=== PATIENT | male | born 1965 | race African-American/Black ===

== ENCOUNTER 2024-12-05 20:06 | Inpatient (IN) | payer MEDICARE, OTHER, SELFPAY ==
[2024-12-05] VITALS (21 sets, daily range): BP systolic 64–145; BP diastolic 50–87; BMI 28.2
[2024-12-05] MEDS: LEVOPHED 250 IV (16:58)
[2024-12-05 17:11] LABS: Hematocrit 33.0 % (39.0-52.0); Hemoglobin 10.3 g/dL (13.0-18.0); Mean Corp Hgb Conc. 31.2 g/dL (33.0-37.0); Mean Corpuscular Volume 86.4 fL (80.0-94.0); Nucleated Red Blood Cells % 0 % (-); Platelet Count 303 10^3/uL (130-400); Red Cell Dist. Width 15.9 % (11.5-14.5)
--- NOTE | 2024-12-05 17:24 | ED.GENMED ---
History of Present Illness
General
Chief Complaint: Unresponsive
Source: ambulance crew
Time Seen by Provider: 12/05/24 16:53
History of Present Illness
History of Present Illness:
59-year-old male brought to the [facility] by ambulance after being found confused at home. He has had some falls. thought it would be related to his glucose however paramedics noted that his glucose was in the 280s. Patient is a bit lethargic
and not able to answer questions fully but does indicate that he had diarrhea. He has had multiple episodes of diarrhea.
Phy Exam
Physical Exam
Physical Exam:
General: Sleepy but arousable, mildly confused
Vitals: Hypotensive
Head: Atraumatic
Eyes: Pupils equal, EOMI
Throat: Airway intact, no exudates, dry mucosa
Neck: Trachea midline
Lungs: Clear and equal b/l
Heart: Regular rate, no murmurs
Abd: Soft, diffuse mild tenderness, No pulsatile mass
Neuro: Nonfocal
Skin: Cool, dry, no rash
Extremities: pulses equal b/l, no edema
Course
Orders/Labs/Results
Orders:
Orders
12/05/24 Breakfast
Sodium, 2 Gram
At Your Request: Limited Participation
Low Sodium: 2000 ines/ 17 CHO Diabetic
12/05/24 16:51
EKG [Electrocardiogram (*1)] Urgent
Reason for Study: Tachycardia
EKG- Treatment ONCE
12/05/24 16:53
NORepinephrine 4 MG/250 ML [Levophed] 4 mg in 250 ml .ROUTE .STK-MED
12/05/24 17:02
Alcohol Urgent
Basic Metabolic Panel Urgent
Complete Blood Count/With Diff Urgent
Lipase Urgent
0.9% Sodium Chloride 1000 ml [Nss] 2,700 ml IV NOW STA
12/05/24 17:04
CT Abd/pelvis W Iv Cont Urgent
Comment:
Reason For Exam: abd pain, diarrhea, hypotension
CT Head W/o Iv Contrast Urgent
Comment:
Reason For Exam: altered mental status
12/05/24 17:05
CR Chest Portable - 1 View Urgent
Comment:
Reason For Exam: altered mental status
Reason Study Needs to be Portable: Patient Unstable
12/05/24 17:08
NORepinephrine 4 MG/250 ML [Levophed] 4 mg in 250 ml IV NOW
Initial dose in mcg/min, then titrate:: 2
Titrate to keep:: MAP > 65 mmHg
Titrate by mcg/min:: 1-2 mcg/min
Frequency of titrations (minutes):: 5
Maximum dose in ICU in mcg/min:: 30
Maximum dose in IMU in mcg/min:: 8
Maximum dose in IVU in mcg/min:: 4
Begin to taper infusion when:: Remained at goal for 4hrs
Taper by mcg/min:: 1-2 mcg/min
Frequency of taper (minutes) if patient maintains goal:: 30
Taper to off?: Yes
If infusion off & no longer maintaining goal:: Contact Provider
12/05/24 17:16
Piperacillin/Tazo 4.5 Gram [Zosyn] 4.5 gram in 100 ml IV NOW
Vancomycin [Vancocin] 2,000 mg 0.9% Sodium Chloride 500 ml [Nss] 500 ml IV NOW
12/05/24 17:30
Fentanyl, Urine Urgent
Lactic Acid Q4H
Comment: CANCEL 2nd LACTIC ACID IF 1st LACTIC ACID IS LESS THAN 2
Urinalysis Reflex To Culture Urgent
Date Specimen was Collected: 12/05/24
Time Specimen was Collected: 17:07
Urine Drug Abuse Screen Urgent
Date Specimen was Collected: 12/05/24
Time Specimen was Collected: 17:07
Urine Microscopic Reflex Cult Urgent
Blood Culture Q30M
TONYA Source: Blood/Venous
Specimen Description:
Blood Culture Q30M
TONYA Source: Blood/Venous
Specimen Description:
STOOL [C difficile Antigen & Toxins] Urgent
TONYA Source: Feces/Stool
Specimen Description:
Date Specimen was Collected: 12/05/24
Time Specimen was Collected: 17:24
Stool Culture Urgent
TONYA Source: Feces/Stool
Specimen Description:
Date Specimen was Collected: 12/05/24
Time Specimen was Collected: 17:24
12/05/24 17:42
Comprehensive Metabolic Panel Urgent
12/05/24 17:56
Interrogate Pacemaker- Treatment ONCE
12/05/24 17:59
Vancomycin [Vancocin] 2,000 mg 0.9% Sodium Chloride 500 ml [Nss] 500 ml IV NOW
12/05/24 19:48
Admit/Transfer Patient As Directed
Co-Sign Provider:
Level of Care: Inpatient admission
Assign to:: IMU- Intermediate Care
Physician / Group: [facility]
Diagnosis: Sepsis
Reason for Hospitalization: IV abx
Expected length of stay greater than two midnights?: Yes
ELOS- Estimated Length of Stay in days: 3
I certify the patient meets the requirements for IP care: Yes
PRN Pain Medication Management As Directed
May give lesser potent ordered pain med per pt: Yes
preference::
Protocol:: Medication orders for pain may be administered in a
manner that supports deferring to patient preference
when the pt is:
- Requesting an ordered lesser potent pain medication.
Least to most potent pain medications are defined
as: acetaminophen < NSAID < tramadol < opioids
(morphine, oxycodone, hydromorphone).
- Requesting a lesser dose of the same medication IF
ORDERED.
- Requesting a less intrusive route of administration
if both routes are prescribed by the provider (PO <
IV).
12/05/24 19:50
Code Status As Directed
Resuscitation Status: Full Code
12/05/24 19:56
Morphine Sulfate 2 mg IV NOW STA
Potassium Chloride Powder [Klor-Con] 40 meq PO NOW STA
12/05/24 21:12
0.9% Sodium Chloride 1000 ml [Nss] 1,000 ml IV 100 mls/hr
Acetaminophen [Tylenol] 650 mg PO Q4HPRN PRN
Dextrose 50%-Water [Dextrose 50% Syringe] 12.5 grams IV [id number] PRN
Glucagon [GlucaGen] 1 mg IM PRN PRN
Morphine Sulfate 2 mg IV Q4HPRN PRN
12/05/24 21:12
Activity As Directed
Activity Level: Out of Bed-Early Mobility
With Assistance
Bedside Glucose Monitoring As Directed
Frequency: AC&HS
Additional Instructions:: Change to q6h if pt on TPN, tube feeding or not eating
I&O [Intake/ Output] As Directed
Frequency: q12h
Obtain Records As Directed
Dates of Information to be Released: November 2024
Type of Information Requested: Discharge Summary
Entire Record
Obtain Records from: [facility]
Obtain Records As Directed
Dates of Information to be Released: November 2024
Type of Information Requested: H&P
Discharge Summary
Obtain Records from: [facility]
Obtain Records As Directed
Dates of Information to be Released: Most Recent
Type of Information Requested: ECG/Cardiology Results
Last Office Visit H&P
If Other, list type of info requested: Pacemaker/Defibrillator Model Information
Obtain Records from: [facility] - Dr. Hafsa Rome
Vital Signs As Directed
Frequency: Per unit guidelines
Weight As Directed
Frequency: Daily
Oxygen Therapy [O2 Therapy] [RESP] Routine
Titrate/Wean O2 to maintain O2 sat greater than (%): 92
Ot Eval And Treat Routine
Pt Eval And Treat Routine
Activity Level: Out of Bed-Early Mobility
DX Deep Vein Thrombosis Video Routine
12/05/24 21:20
Lactic Acid Q4H
Comment: CANCEL 2nd LACTIC ACID IF 1st LACTIC ACID IS LESS THAN 2
12/05/24 22:00
Gabapentin [Neurontin] 400 mg PO QID
12/06/24 00:00
Piperacillin/Tazo 3.375 Gram [Zosyn] 3.375 gram in 50 ml IV Q6H
Vancomycin HCl [Firvanq] 125 mg PO Q6
12/06/24 04:30
Basic Metabolic Panel IN AM
Complete Blood Count/No Diff IN AM
Glycohemoglobin (HgbA1c) IN AM
Lipase IN AM
Magnesium IN AM
12/06/24 07:30
Insulin Aspart Corrective Mod [Novolog Flexpen-Moderate Resistance] See Protocol SC AC
12/06/24 08:00
Atorvastatin [Lipitor] 40 mg PO DAILY
Dapagliflozin [Farxiga] 10 mg PO DAILY
Tamsulosin [Flomax] 0.8 mg PO DAILY
12/06/24 09:00
Cholestyramine [Questran] 4 gram PO DAILY@0900
12/06/24 18:00
Enoxaparin Sodium [Lovenox] 40 mg SC QPM
Abnormal Lab Results
12/05/24 12/05/24 12/05/24
17:02 17:30 17:42
WBC 23.3 H 10^3/uL
(4.8-10.8)
RBC 3.82 L 10^6/uL
(4.70-6.10)
Hgb 10.3 L g/dL
(13.0-18.0)
Hct 33.0 L %
(39.0-52.0)
MCHC 31.2 L g/dL
(33.0-37.0)
RDW 15.9 H %
(11.5-14.5)
Abs Immat Gran (auto) 0.1 H 10^3/uL
(0-0.05)
Absolute Neuts (auto) 19.3 H 10^3/uL
(1.4-6.5)
Absolute Monos (auto) 1.7 H 10^3/uL
(0.1-0.6)
Neutrophils % 82.8 H %
(42.2-75.2)
Lymphocytes % 8.2 L %
(20.5-51.1)
Potassium 3.3 L mmol/L
(3.5-5.1)
Chloride 113 H mmol/L
(98-107)
Carbon Dioxide 18 L mmol/L
(22-30)
Glucose 308 H mg/dl 254 H mg/dl
(70-99) (70-99)
Lactic Acid 3.7 H mmol/L
(0.7-2.0)
Calcium 7.3 L D mg/dl
(8.4-10.2)
Total Protein 5.5 L g/dl
(6.3-8.2)
Albumin 3.1 L g/dl
(3.5-5.0)
Lipase 683 H U/L
(23-300)
Urine RBC 3-6 A /HPF
(0-2)
Urine Glucose 4+ A
(Negative)
Urine Albumin (Reflex) 2+ A
(Neg - Trace)
Urine Cocaine Screen Positive H
(Negative)
U Marijuana (THC) Screen Positive H
(Negative)
12/05/24 17:02
12/05/24 17:42
Vital Signs
Initial and Last Documented VS:
Initial Vital Signs
Pulse Resp BP Pulse Ox
89 13 64/50 85
12/05/24 16:51 12/05/24 16:51 12/05/24 16:51 12/05/24 16:51
Last Documented Vital Signs
Temp Pulse Resp BP Pulse Ox
98.1 F 87 11 131/80 100
12/06/24 23:24 12/06/24 22:30 12/06/24 22:30 12/06/24 22:00 12/06/24 22:30
MDM/Problems Addressed
Differential Diagnosis Includes:
Intra-abdominal infection, C. difficile, urinary tract infection
MDM/Problems Addressed:
Patient presents with altered mental status, hypotension, chills. His exam was nonfocal. Patient received IV fluid resuscitation with a 30 cc per program fluid bolus. Levophed was started for profound hypotension. With increased blood pressure
the patient's mental status improved greatly. He became more conversant. He was able to tell me that was admitted to [facility] a couple weeks ago for something of a rectal abscess. Surgery was discharged. He was having severe
pain postop and felt like he was discharged too early so he went to [facility] where he was admitted for an additional couple days. After further antibiotics he felt better. He states that he developed diarrhea just today. It was
voluminous.
*Radiology
Radiology exam reviewed: preliminary read by ED provider (No acute findings on chest x-ray)
*Pulse Oximetry
SaO2: 100
Oxygen Mode of Delivery: Non-rebreather mask
Patient hypoxic: no
*EKG
Heart Rate: 79
Rate: normal
Rhythm: sinus
Otho: normal axis
Interval: normal interval
QRS Pattern: normal QRS
Ischemia: non-specific ST changes
*Tail Ripper Interpretation
Rate: normal
Interpretation: normal
Heart Rate: 79
Rhythm: sinus
*Critical Care Note
Total Time (30-74mins, 75-104mins- exclusive of procedures): 40 min
comment:
Critical care statement: A total of 40 minutes of critical care time was provided for this patient. This includes management of unstable vital signs, evaluation of the patient at bedside, reviewing the patient's pertinent medical records, discussion
with consultants, review of old EKGs and review of pertinent medical records. This time with separate from time utilized to perform the aforementioned documented procedures
ED Attending Note
-
Portions of this chart may have been created with voice recognition software.� Occasional wrong word or��sound alike� substitutions may have occurred due to the inherent limitations of voice recognition software.
Discharge Plan
Departure
Patient Disposition: Admit
Date of Disposition: 12/05/24
Time of Disposition: 18:33
Presentation/result/management discussed w/ accepting MD/DO: Hospitalist
Condition: Fair
Discharge Problem:
Acute hypotension, Diarrhea
Interventions
Interventions:
*Risk Screen - Suicide Last Done: 12/05/24 17:50
*General Assessment Last Done: 12/05/24 17:50
*Neglect/Abuse Screening Last Done: 12/05/24 17:50
*ED- Fall Risk Assessment Last Done: 12/05/24 16:51
*ED COVID-19 Vaccine History Last Done: 12/05/24 17:50
*Nursing Disposition Last Done: 12/05/24 22:05
ED- Neurological Assessment Last Done: 12/05/24 17:46
Discharge Date and Time
Discharge Date/Time: 12/05/24 22:06
[2024-12-05] MEDS: NSS 2700 ML IV (17:25)
[2024-12-05 17:39] LABS: Blood Urea Nitrogen 18 mg/dl (9-20); Calcium 9.8 mg/dl (8.4-10.2); Carbon Dioxide 24 mmol/L (22-30); Chloride 102 mmol/L (98-107); Estimated Creatinine Clearance 60 ml/min; Glucose 308 mg/dl (70-99); Lipase 683 U/L (23-300); Sodium 138 mmol/L (135-145); eGFR > 60.00
[2024-12-05] MEDS: ZOSYN 100 IV (17:45)
[2024-12-05 17:49] LABS: Urine Character Clear (Clear)
[2024-12-05 18:05] LABS: Urine Squamous Cell 0-2 /LPF (Few)
[2024-12-05 18:06] LABS: Urine White Cell 0-2 /HPF (0-5)
[2024-12-05 18:33] LABS: ALT (SGPT) 13 U/L (0-50); AST (SGOT) 22 U/L (17-59); Albumin 3.1 g/dl (3.5-5.0); Alkaline Phosphatase 64 U/L (38-126); Blood Urea Nitrogen 14 mg/dl (9-20); Calcium 7.3 mg/dl (8.4-10.2); Carbon Dioxide 18 mmol/L (22-30); Chloride 113 mmol/L (98-107); Estimated Creatinine Clearance 87 ml/min; Glucose 254 mg/dl (70-99); Potassium 3.3 mmol/L (3.5-5.1); Sodium 139 mmol/L (135-145); Total Protein 5.5 g/dl (6.3-8.2); eGFR > 60.00
[2024-12-05] MEDS: VANCOCIN 540 MG IV (19:19)
--- NOTE | 2024-12-05 19:28 | HPS.HSE ---
Family Physician
-
Family Physician: Nash Tolentino
Chief Complaint
-
Confusion
History of Present Illness
Patient is a 59 y/o male past medical history of hypertension, hyperlipidemia and diabetes mellitus who presents with confusion. Additional history provided by patient's spouse at the bedside. Patient was admitted to [facility] earlier this
month with a perirectal abscess. He was discharged on November 19 on oral cefdinir and metronidazole. Unfortunately patient worsened upon returning home and he went to [facility]. He was admitted for another 5 days and then discharged
with a PICC line to complete a coarse of IV antibiotics (possibly ertapenem). Patient is unable to tells me what kind of infection he had that required IV antibiotics. Patient reports over the past few days he has been having one episode of
diarrhea per day, but today the diarrhea was much worse. He describes it as voluminous and he could not get off the toilet the whole morning. His found him very confusion and called 911. Upon arrival to the emergency department patient was
very hypotensive for which he received IVFs and was started on Levophed. Patient's mentation is now greatly improved and he is no longer on Levophed.
Medical History
Past Medical History
Past Medical History: Reports Other
Additional Past Medical History:
Diabetes Mellitus, Type II
Essential Hypertension
Hyperlipidemia
BPH
Past Surgical History: Reports Other
Additional Past Surgical History:
ICD / Pacemaker
Social History
Tobacco: Smoker (1/2 PPD)
Alcohol: Binge drinker (Patient reports drinking a case of beer in a night, usually twice a week but has consumed no alcohol for the past 3 weeks)
Drug: Marijuana (Current) and Cocaine (Patient reports last usage as 'years ago')
Family History
Family History: Not pertinent
Allergies / Home Medications
Allergies reflects when Allergies were last updated in [employer].
Home Medications with original date entered in [employer]
Allergy/Medication List:
Allergies
Allergy/AdvReac Type Severity Reaction Status Date / Time
No Known Allergies Allergy Verified 12/05/24 16:57
Home Medications
atorvastatin 40 mg tablet 40 mg PO DAILY 12/05/24
azelastine 137 mcg (0.1 %) nasal spray 2 spray intranasal BID 12/05/24
dapagliflozin propanediol 10 mg tablet (Farxiga) 10 mg PO DAILY 12/05/24
dutasteride 0.5 mg-tamsulosin ER 0.4 mg capsule ext.release 24hr mphas 2 cap PO DAILY 12/05/24
furosemide 40 mg tablet 40 mg PO DAILY 12/05/24
gabapentin 400 mg capsule 400 mg PO QID 12/05/24
losartan 100 mg tablet 100 mg PO DAILY 12/05/24
metformin 1,000 mg tablet 1,000 mg PO BID 12/05/24
metoprolol tartrate 25 mg tablet 25 mg PO BID 12/05/24
Review of Systems
-
A 12 point ROS was completed and negative except as noted: Yes
Constitutional: Reports Chills
Respiratory: Denies Cough or Trouble Breathing
Cardiac: Denies Chest Pain or Palpitations
Abdomen/GI: Reports Diarrhea; Denies Abdominal Pain, Nausea or Vomiting
: Denies Dysuria or Frequency
Physical Exam
Vital Signs
Vital Signs
Temp Pulse Resp BP Pulse Ox
97.5 F 93 20 116/69 98
12/05/24 17:22 12/05/24 17:45 12/05/24 17:45 12/05/24 17:45 12/05/24 19:24
Physical Exam
General: Comfortable and Conversant
HEENT: Anicteric and Moist mucous membranes
Respiratory: Clear and Non Labored Respirations
Cardiac: S1/S2, Regular Rhythm and Tachycardia (Slightly)
GI: Soft, Non Tender and Non Distended
Rectal: Deferred by Provider
Musculoskeletal: No Clubbing, No Cyanosis and No Edema
Skin: Warm and Dry
Neuro: Awake, Alert, Oriented and No Motor Deficits
Psych: Calm
Laboratory Results
-
12/05/24 17:02
12/05/24 17:42
Laboratory Results
Lactic Acid 3.7 mmol/L (0.7-2.0) H 12/05/24 17:30
Total Bilirubin 0.4 mg/dl (0.2-1.3) 12/05/24 17:42
AST 22 U/L (17-59) 12/05/24 17:42
ALT 13 U/L (0-50) 12/05/24 17:42
Alkaline Phosphatase 64 U/L (38-126) 12/05/24 17:42
Lipase 683 U/L (23-300) H 12/05/24 17:02
Abd/Pelvis CT:
The appendix appears normal. No evidence for bowel obstruction or free intraperitoneal air. No gross evidence for significant bowel wall thickening or abnormal enhancement.
Significant endplate irregularity at L5-S1 with depression of the adjacent endplates. Main differential considerations of discitis versus severe changes of degenerative disc disease. There is air within the disc space, a finding which is reported to
favor changes of degenerative disc disease without infection. As warranted, further evaluation could be considered with MRI of the lumbar spine without and with contrast.
Data Reviewed
-
CT Scan: Report Reviewed by me
Lab Data: Labs Reviewed by me
Old Records: Requested
Impression/Plan
-
Severe Sepsis, unclear source of infection
-Possible sources include bacteremia following recent PICC removal, C Diff following prolonged coarse of antibiotics, and possible discitis as noted on CT scan
-Consult Infectious Disease
-Await urine and blood cultures
-Await C Diff testing and stool cultures
-Check Lumbar Spine MRI
-Continue IV Vancomycin and Zosyn
-Start oral vancomycin pending C Diff testing
-Trend lactic acid level
-Requested records from [facility] and patient's [employer]
Hypokalemia, likely related to GI losses
- Replace potassium and recheck labs in AM
Hypocalcemia
-Initial calcium level within normal range
-Repeat corrected calcium slightly low at 8.0
-Recheck calcium in AM
Diabetes Mellitus, Type II
-Continue Farxiga
-Hold metformin
-Monitor sugars and continue coverage insulin
Essential Hypertension
-Hold all blood pressure medications as patient as profoundly hypotensive upon arrival
Hyperlipidemia
-Continue atorvastatin
BPH with LUTS
-Continue Flomax
DVT Proph: Lovenox
Code Status: Full Code
[2024-12-05] MEDS: MORPHINE SULFATE 2 MG IV (20:22)
[2024-12-05] MEDS: KLOR-CON 40 MEQ PO (20:30)
[2024-12-05 22:25] LABS: Glucose - Point of Care 275 mg/dl (70-99)
--- NOTE | 2024-12-05 22:31 | PTCARENOTE ---
Patient arrived into room 3343 from ER. Patient alert, making jokes. Moved over from stretcher to bed. NSR / ST on telemetry. BP WNL. CHG done. Pt eating boxed turkey meal, no s/s of aspiration. 1L NC, Sp02 97-99%. Admission questions started.
C.Diff sample sent in ER; education started on isolation precautions and plan of care. Pt states he smokes marijuana for his chronic back pain; [employer] made aware. Oriented to room and use of call saldana. 2 RN skin check done with what pt allows, pt
modest. Bed alarm set for safety. Call saldana within reach.
--- NOTE | 2024-12-05 22:39 | W.PN.UPDATE ---
Update Note
Progress Note Update
Patient seen independently
Please see HOME HEALTH NURSE LICENSED PRACTICAL note for full details
59 y/o man presents with confusion. He was hospitalized earlier this month with a perirectal abscess. He was discharged on November 19 on oral cefdinir and metronidazole. He worsened upon returning home and then went to [facility]. He
was there for another 5 days and then discharged with a PICC line. He does not know what kind of infection he had that required IV antibiotics. Over the past few days he has been having one episode of diarrhea per day, but then today the diarrhea
was more frequent and worse. found him confused and called 911. Upon arrival to ED patient was hypotensive and received IVFs and was started on Levophed. Patient's mentation is now improved and he is no longer on Levophed.
Past Medical History
Diabetes Mellitus, Type II
Essential Hypertension
Hyperlipidemia
BPH
ICD / Pacemaker
Physical Exam
General: Comfortable
Respiratory: Clear
Cardiac: S1/S2
GI: Soft, Non Tender
Skin: Warm
Neuro: Awake, Alert
Psych: Calm
Abd/Pelvis CT:
The appendix appears normal. No evidence for bowel obstruction or free intraperitoneal air.
No gross evidence for significant bowel wall thickening or abnormal enhancement.
Significant endplate irregularity at L5-S1 with depression of the adjacent endplates.
Main differential considerations of discitis versus severe changes of degenerative disc disease.
There is air within the disc space, a finding which is reported to favor changes of degenerative disc disease without infection.
As warranted, further evaluation could be considered with MRI of the lumbar spine without and with contrast.
Impression/Plan
1. Severe Sepsis, unclear source of infection
Possible sources include:
bacteremia following recent PICC removal
C Diff following prolonged coarse of antibiotics
possible discitis as noted on CT scan above
Consult Infectious Disease
urine and blood cultures
C Diff testing and stool cultures
Lumbar Spine MRI
IV Vancomycin and Zosyn
oral vancomycin (pending C Diff testing)
Trend lactic acid level
Please see PA note for full details on:
Hypokalemia, likely related to GI losses
Hypocalcemia
Diabetes Mellitus, Type II
Essential Hypertension
Hyperlipidemia
BPH with LUTS
[2024-12-05] MEDS: NEURONTIN 400 MG PO (22:45)
[2024-12-05] MEDS: NSS 1000 IV (22:49)
--- NOTE | 2024-12-05 23:22 | PHA.VAN.IN ---
Assessment
- Assessment
Renal Function: Appears similar to baseline
Maximum Temperature: 98.3
Minimum Temperature: 97.5
Concomitant Antimicrobials: Zosyn 3.375 mg IV q6h
AUC Dosing Plan
- Dosing Variables
Dosing Weight (kg): 89.1 kg
Dosing CrCl (ml/min): 90 ml/min
Vd coefficient (L/kg): 0.7
- Empiric Dosing
Initial / Loading Dose: Vancomycin 2000 mg x 1 dose
Maintenance Regimen: Vancomycin 750 mg IV q8h
Estimated AUC (mcg*h/mL): 474
Estimated Peak (mcg*h/mL): 25.6
Estimated Trough (mcg/ml): 14.7
Estimated Half Life (H): 8.8
- Monitoring
Peak level is ordered to be drawn (date/time): 12/07 at 1:00 AM
Trough level is ordered to be drawn (date/time): 12/07 at 5:30 AM
Levels to be Drawn after Dose #: 4
Pharmacokinetics Vancomycin I
- -
Patient Age: 59
Vancomycin Day #: 1
Indication: Other (Sepsis)
Requesting Provider: Dr. Anderson
Pertinent Antimicrobial Allergies:
NKDA
Height / Weight:
Height 5 ft 10 in
Actual Weight 89.1 kg
IBW in k kg
Adjusted BW in k.4 kg
Pertinent Past Medical History: DM, BMI: 28.2
- Vital Signs / Lab Results
Temp Pulse Resp BP Pulse Ox
98.3 F 91 16 130/75 98
12/05/24 22:08 12/05/24 22:15 12/05/24 22:15 12/05/24 22:07 12/05/24 22:15
Lab Results - Hematology
12/05/24
17:02
WBC 23.3 H
Lab Results - Chemistry
12/05/24 12/05/24
17:02 17:42
BUN 18 14
Creatinine 1.3 0.9
Estimated Creat Clear 60 87
Albumin Cancelled 3.1 L
12/05/24 12/05/24
17:30 21:20
Lactic Acid 3.7 H 1.2
Lab Results - Urine
12/05/24
17:30
Urine Nitrite (Reflex) Negative
Leukocyte Esterase Rfl Negative
Urine WBC (Reflex) 0-2
Ur Squamous Epith Cells 0-2
[2024-12-05] MEDS: FIRVANQ 125 MG PO (23:58)
[2024-12-05] MEDS: ZOSYN 50 IV (23:58)
[2024-12-06] VITALS (14 sets, daily range): BP systolic 112–181; BP diastolic 66–100; PULSE 99–121; O2SAT 91–96; BMI 27.9
[2024-12-06 04:47] LABS: Hematocrit 26.7 % (39.0-52.0); Hemoglobin 8.9 g/dL (13.0-18.0); Mean Corp Hgb Conc. 33.3 g/dL (33.0-37.0); Mean Corpuscular Volume 83.2 fL (80.0-94.0); Platelet Count 203 10^3/uL (130-400); Red Cell Dist. Width 15.0 % (11.5-14.5)
[2024-12-06 05:09] LABS: Albumin 3.5 g/dl (3.5-5.0); Blood Urea Nitrogen 15 mg/dl (9-20); Calcium 8.7 mg/dl (8.4-10.2); Carbon Dioxide 20 mmol/L (22-30); Chloride 110 mmol/L (98-107); Estimated Creatinine Clearance 101 ml/min; Glucose 268 mg/dl (70-99); Lipase 198 U/L (23-300); Magnesium 1.8 mg/dl (1.6-2.3); Potassium 4.2 mmol/L (3.5-5.1); Sodium 137 mmol/L (135-145); eGFR > 60.00
[2024-12-06] MEDS: VANCOCIN 150 IV (05:15)
[2024-12-06] MEDS: OCEAN, SALINE MIST 1 SPRAYS NASAL (05:15)
[2024-12-06] MEDS: ZOSYN 50 IV ×3 (06:27→17:01)
[2024-12-06] MEDS: FIRVANQ 125 MG PO (06:27)
[2024-12-06 07:48] LABS: Glucose - Point of Care 234 mg/dl (70-99)
[2024-12-06] MEDS: FLOMAX 0.8 MG PO (08:13)
[2024-12-06] MEDS: LIPITOR 40 MG PO (08:13)
[2024-12-06] MEDS: NOVOLOG FLEXPEN-MODERATE RESISTANCE 3 UNITS SC (08:13)
[2024-12-06] MEDS: FARXIGA 10 MG PO (08:13)
[2024-12-06] MEDS: NEURONTIN 400 MG PO ×4 (08:13→22:05)
[2024-12-06 09:03] LABS: Glycohemoglobin (HgbA1c) 8.8 % (4.0-5.6)
[2024-12-06] MEDS: QUESTRAN 4 GRAM PO (09:50)
--- NOTE | 2024-12-06 11:25 | CM ---
Addendum entered by Milana Velasquez 12/06/24 14:18:
Pt has Medicare Part A primary, [place] 1st secondary
No Part B
Original Note:
CM met with pt bedside
Pt and spouse reside in a 3 story townhouse with 0STE to enter 'alyson stevens', 16 steps to main living level and 16 steps up to sleeping/bathing level
Pt is independent with his ADLs, no DMEs, drives+
P is currently not working and in process of applying for disability
Pt recently admitted to [facility] [place] and [facility]
Was discharged with picc/IV abx through [facility], no VN
PCP- Nash Tolentino
Rx- [facility]
Call with spouse to introduce self and explain role
She confirmed info provided by pt
Spouse wants to avoid home abx again
PT/OT pending
CM to follow for dc planning
Discharge Disposition- home, follow for VN/abx needs
--- NOTE | 2024-12-06 11:39 | W.PN.HOSP.TC ---
Today's Communication/Plan
-
Follow-up cultures
MRI of the lumbar spine
Empiric antibiotics
Assessment / Plan
Assessment / Plan
Impression:
Concern for evolving sepsis/SIRS.
Acute mental status change secondary to toxic metabolic encephalopathy secondary to above.
Acute kidney injury
Normal anion gap metabolic acidosis
Hypokalemia
Hypocalcemia
Substance use disorder (urine drug screen positive for marijuana and cocaine)
Conditions prior to admission
Recent hospitalization outside hospital with projectile abscess status post I&D completed course of IV antibiotics via PICC line PICC line removed on 12/03
Diabetes type 2.
Essential hypertension.
Dyslipidemia
Status post pacemaker about 6 years ago.
BPH with LUTS
Plan:
Abd/Pelvis CT:
The appendix appears normal. No evidence for bowel obstruction or free intraperitoneal air. No gross evidence for significant bowel wall thickening or abnormal enhancement.
Significant endplate irregularity at L5-S1 with depression of the adjacent endplates. Main differential considerations of discitis versus severe changes of degenerative disc disease. There is air within the disc space, a finding which is reported to
favor changes of degenerative disc disease without infection. As warranted, further evaluation could be considered with MRI of the lumbar spine without and with contrast.
Presentation with fever, elevated white count, hypotension.
Differential diagnosis: Bacteremia (given recent PICC line), C. difficile ruled out, L5-S1 osteomyelitis given CT scan imaging.
Hypotension improved with IV fluids.
Abdominal examination benign.
CT as above with no evidence of collection.
Stool for C. difficile negative pending rest of cultures
Blood cultures pending
Urinalysis unremarkable.
Continue broad-spectrum antibiotics: Currently on vancomycin and Zosyn pending cultures
He does complain of a chronic lower back pain since accident. MRI pending.
ID consult
Acute kidney injury.
Normal anion gap metabolic acidosis
Improved with IV fluid bolus.
Diabetes.
Hemoglobin A1c 8.8.
Continue Farxiga.
Hold metformin.
Basal bolus protocol following serial Accu-Cheks
Cardiovascular.
Essential hypertension.
Status post pacemaker
Dyslipidemia.
Denies heart failure.
Medical records from primary cardiology pending.
Volume status compensated per
Hold furosemide acutely.
Continue metoprolol monitor for recurrent hypertension
Continue statin
BPH with LUTS
Continue Flomax
Monitor for retention
Anticipated Discharge: 24 - 48 hours
Subjective/Interval History
-
Date of Service: December 06, 2024
Objective Data
-
Labs:
Laboratory Results
12/06/24
04:30
WBC 10.0
Hgb 8.9 L
Hct 26.7 L
Plt Count 203 D
Sodium 137
Potassium 4.2 D
Chloride 110 H
Carbon Dioxide 20 L
BUN 15
Creatinine 0.8
Glucose 268 H
Calcium 8.7
Vital Signs:
Vital Signs
Temp Pulse Resp BP Pulse Ox
98.0 F 85 15 156/81 96
12/06/24 07:27 12/06/24 10:00 12/06/24 10:00 12/06/24 10:00 12/06/24 10:00
I&O
12/05/24 12/06/24 12/07/24
06:59 06:59 06:59
Intake Total 1450 / 1450 530 / 530
Output Total 1775 / 1775 1100 / 1100
Balance -325 / -325 -570 / -570
Physical Exam
-
General: Well Developed and No Apparent Distress
HEENT: Normocephalic, Atraumatic and Moist Mucous Membranes
Respiratory: Clear to Auscultation
Cardiac: Regular Rhythm and S1/S2; Negative Murmur, Rub or Gallop
GI: Soft, Nontender, Nondistended and Normal Bowel Sounds; Negative Organomegaly
Rectal: Deferred by Provider
Musculoskeletal: No Clubbing, No Cyanosis and No Edema
Skin: Negative Rash
Neuro: Nonfocal/Grossly Intact
[2024-12-06] MEDS: NSS IV (11:41)
[2024-12-06 11:53] LABS: Glucose - Point of Care 293 mg/dl (70-99)
--- NOTE | 2024-12-06 12:34 | PHA.VAN.FU ---
Vancomycin Assessment / Plan
- Assessment
Renal Function: SCR Decreasing
WBC's are: WNL
In the past 24 hrs, patient has been: Afebrile
Concomitant Antimicrobials: piperacillin/tazobactam
- Dosing Plan
Adjust Regimen to: Vanc 1250mg Q12H starting at 1800
- Monitoring Plan
No level(s) ordered at this time: consider levels in next few days
- Follow Up
Pharmacy will continue to follow.
Vancomycin Follow UP
- -
Patient Age: 59
Vancomycin Day #: 2
Indication: Other
Requesting Provider: Jennie Anderson
Pertinent Antimicrobial Allergies:
NKDA
Height / Weight:
Height 5 ft 10 in
Actual Weight 88.1 kg
Pertinent Past Medical History: DM 2
- Vital Signs / Lab Results
Temp Pulse Resp BP Pulse Ox
98.0 F 85 15 156/81 96
12/06/24 07:27 12/06/24 10:00 12/06/24 10:00 12/06/24 10:00 12/06/24 10:00
Lab Results - Hematology
12/05/24 12/06/24
17:02 04:30
WBC 23.3 H 10.0
Lab Results - Chemistry
12/05/24 12/05/24 12/06/24
17:02 17:42 04:30
BUN 18 14 15
Creatinine 1.3 0.9 0.8
Estimated Creat Clear 60 87 101
Albumin Cancelled 3.1 L 3.5
12/05/24 12/05/24 12/06/24
17:30 21:20 00:15
Lactic Acid 3.7 H 1.2 Cancelled
Lab Results - Urine
12/05/24
17:30
Urine Nitrite (Reflex) Negative
Leukocyte Esterase Rfl Negative
Ur Squamous Epith Cells 0-2
Microbiology Results
12/05/24 17:30 C. difficile GDH Antigen & Toxins - Final
Feces/Stool Negative for toxigenic C.difficile
[2024-12-06] MEDS: NOVOLOG FLEXPEN-MODERATE RESISTANCE 5 UNITS SC ×2 (13:24→18:00)
[2024-12-06] MEDS: CATAPRES 0.1 MG PO (14:59)
--- NOTE | 2024-12-06 15:03 | PTCARENOTE ---
Dr. Patel made aware that patient's BP is 181/82. Catapres ordered and administered to patient. Care ongoing.
--- NOTE | 2024-12-06 15:56 | PTCARENOTE ---
Patient AOx3. Forgetful at times. Bed alarm in place and audible. 2L NC when sleeping due to SpO2 less than 88%. NSR-Sinus tach on monitor. BP elevated. MD aware. Utilizes the urinal. Loose stools. Tolerating oral diet. Call saldana within reach, bed
in lowest position, and bed of wheels locked.
--- NOTE | 2024-12-06 16:44 | CON.ID ---
Consultation
-
Date/Time Consultation Requested: 12/06/24
Date/Time Consultation Performed: 12/06/24
Requesting Provider: Dr Patel
Performing Provider: Dr Bertha Turcios
Reason for Consultation: altered mental status with concern for infectious etiology
Chief Complaint / Past History
Chief Complaint
Brought to ED with acute altered mental status change with hypotension noted in ED
History of Present Illness
The patient describes being in a home and getting up to urinate when he felt a bit weak and sat on the commode to urinate and had significant profound prolonged watery diarrhea that made him so weak that he fell off the commode when he finished
defecation. He denies bloody bowel movement and states that he lost consciousness and was brought to the ED where he was found to be hypotensive, unresponsive, altered with leukocytosis.
In the ED the patient was given aggressive IVF hydration with improved status and improved blood pressure. Infectious disease workup was initiated and stool as well as blood cultures were obtained
Upon evaluation in the ED the patient was found to have a leukocytosis WBC of 23.3 with 82% PMN and a lactic acid of 1.2
Imaging was done and showed concerning findings including chest defibrillator in the setting of clear lungs a history of recent anal abscess without current findings, left adrenal mass consistent with an adenoma and findings in the lumbosacral spine
showing L5/S1 endplate abnormalities. Per subsequent history it seems the patient had a recent PICC line insertion and was given ertapenem at home for an unknown infection.
In the ED the patient was placed on broad-spectrum antibiotic with vancomycin/Zosyn in the setting of hypotension and leukocytosis with left shift despite being afebrile. The patient was continued on vancomycin and Zosyn pending results of blood
cultures and follow-up studies.
Past History
Past Medical History: HTN, Hypercholesterolemia (BPH, hyperlipidemia, ICD pacemaker, binge drinker), IDDM and Other
Additional Past Medical History:
BPH , ICD pacemaker
Past Surgical History: Cardiac (ICD insertion/pacemaker)
Allergy History:
No Known Allergies Allergy (Verified 12/05/24 16:57)
Medications Reviewed: Yes
Social History
Tobacco: Smoker
Alcohol: Binge Drinker
Drug: Marijuana and Cocaine
Personal:
Living: With Family
Employment: Other (unknown)
Family History
Family History: Not Pertinent
Review of Systems
Review of Systems
Gasteroenterology: Diarrhea
Neurological: Fainting
Psychological: Substance Abuse
All systems: All other systems were reviewed and were negative
Vital Signs
Temp Pulse Resp BP Pulse Ox
98.5 F 75 21 156/69 94
12/06/24 15:40 12/06/24 16:15 12/06/24 16:15 12/06/24 16:00 12/06/24 16:15
Physical Exam
Physical Exam
Constitutional: No Acute Distress, Well Developed, Comfortable and Chronically Ill
Head: Normocephalic
Eyes: Pupils Equal, Pupils Round, No Conjunctival Hemorrhage and Sclera Anicteric
Pharynx: Benign
Oral: No Thrush and No Ulcers
Cardiovascular: Regular Rate
Pulmonary: Clear
Gastrointestinal: Soft, Non Tender and Non Distended
Genito-Urinary: Other (no flank tenderness)
Skin: Warm and Dry
Wound: None
Neurological: Awake, Alert, Oriented and AO x 3
Psychological: Calm
Lab / Diagnostic Study Results
12/06/24 04:30
12/06/24 04:30
Abs Immat Gran (auto) 0.1 10^3/uL (0-0.05) H 12/05/24 17:02
Absolute Neuts (auto) 19.3 10^3/uL (1.4-6.5) H 12/05/24 17:02
Absolute Lymphs (auto) 1.9 10^3/uL (1.2-3.4) 12/05/24 17:02
Absolute Monos (auto) 1.7 10^3/uL (0.1-0.6) H 12/05/24 17:02
Absolute Basos (auto) 0.1 10^3/uL (0-0.2) 12/05/24 17:02
Immature Gran % 0.5 % (0-0.5) 12/05/24 17:02
Neutrophils % 82.8 % (42.2-75.2) H 12/05/24 17:02
Lymphocytes % 8.2 % (20.5-51.1) L 12/05/24 17:02
Monocytes % 7.3 % (1.7-9.3) 12/05/24 17:02
Eosinophils % 0.9 % (0-6) 12/05/24 17:02
Basophils % 0.3 % (0-2) 12/05/24 17:02
Lactic Acid Cancelled 12/06/24 00:15
Ur Squamous Epith Cells 0-2 /LPF (Few) 12/05/24 17:30
Microbiology Results
Micro:
12/05/24 17:30 C. difficile GDH Antigen & Toxins - Final
Feces/Stool Negative for toxigenic C.difficile
12/05/24 17:30 Blood Culture - Pending
Blood/Venous
12/05/24 17:30 Blood Culture - Pending
Blood/Venous
12/05/24 17:30 Salmonella/Shigella Culture - Pending
Feces/Stool Campylobacter Culture - Pending
Shiga Toxin Test - Pending
Assessment / Plan
1.Admitted via ED with profound hypotension requiring pressors on arrival with profound leukocytosis with WBC 23.3 with PMN 82.8 % afebrile with LA 1.2
The patient responded to IVF and improved mental status ensued
2. Stool for C. difficile was negative with blood cultures and stool studies pending no need for oral Vancomycin
3. Patient on empiric antibiotic with Vancomycin and Zosyn pending culture results
4. Etiology of possible infection:
Diarrhea /GI source in seting of profound diarrhea
Recent PICC line on Ertapenem for unknown infection
Patent with recent history of anal abscess without current findings on CT imaging
Patient with Pacemaker/ICD with concern for bacteremia
Abnormal spine studies with endplate abnormality on CT at L5/S1
Thank you for calling Infectious Disease Consultation.
The ID team will follow with you
Please call us with any questions or concerns
Care Review
Total Time Spent with Patient (in minutes): 55
[2024-12-06] MEDS: LOVENOX 40 MG SC (17:03)
[2024-12-06 17:19] LABS: Glucose - Point of Care 286 mg/dl (70-99)
[2024-12-06] MEDS: VANCOCIN 275 MG IV (17:33)
[2024-12-06] MEDS: MORPHINE SULFATE 2 MG IV (19:39)
[2024-12-06 22:19] LABS: Glucose - Point of Care 359 mg/dl (70-99)
[2024-12-06] MEDS: NOVOLOG FLEXPEN 5 UNITS SC (22:22)
--- NOTE | 2024-12-06 22:29 | PTCARENOTE ---
Patient asked multiple times to perform mouthcare per unit policy. Patient agitated that he has to brush his teeth. Education provided and patient finally agreeable. will continue to monitor.
--- NOTE | 2024-12-06 22:36 | PTCARENOTE ---
Patient blood sugar 359- hot wound spring production supervisor provider made aware and ordered 5 units novolog.
[2024-12-07] VITALS (9 sets, daily range): BP systolic 135–181; BP diastolic 73–96; BMI 28.4
[2024-12-07] MEDS: ZOSYN 50 IV ×4 (00:16→17:49)
--- NOTE | 2024-12-07 03:44 | PTCARENOTE ---
Patient cursing and yelling at staff during am blood work.
[2024-12-07 04:03] LABS: Hematocrit 29.8 % (39.0-52.0); Hemoglobin 9.6 g/dL (13.0-18.0); Mean Corp Hgb Conc. 32.2 g/dL (33.0-37.0); Mean Corpuscular Volume 85.9 fL (80.0-94.0); Nucleated Red Blood Cells % 0 % (-); Platelet Count 238 10^3/uL (130-400); Red Cell Dist. Width 15.8 % (11.5-14.5)
[2024-12-07 04:32] LABS: Blood Urea Nitrogen 10 mg/dl (9-20); Calcium 9.5 mg/dl (8.4-10.2); Carbon Dioxide 24 mmol/L (22-30); Chloride 110 mmol/L (98-107); Estimated Creatinine Clearance 116 ml/min; Glucose 243 mg/dl (70-99); Potassium 4.2 mmol/L (3.5-5.1); Sodium 140 mmol/L (135-145); eGFR > 60.00
--- NOTE | 2024-12-07 04:41 | PTCARENOTE ---
Patient afebrile overnight. No episodes of hypotension. at bedside. IV ABX infusing as ordered. On 2 liters while asleep. PRN morphine given for lower back pain. will continue to monitor.
[2024-12-07] MEDS: VANCOCIN 275 MG IV ×2 (05:55→18:34)
[2024-12-07] MEDS: MORPHINE SULFATE 2 MG IV (07:51)
[2024-12-07] MEDS: NEURONTIN 400 MG PO ×4 (07:52→22:10)
[2024-12-07] MEDS: FLOMAX 0.8 MG PO (07:52)
[2024-12-07] MEDS: FARXIGA 10 MG PO (07:52)
[2024-12-07] MEDS: LIPITOR 40 MG PO (07:52)
[2024-12-07 08:16] LABS: Glucose - Point of Care 220 mg/dl (70-99)
--- NOTE | 2024-12-07 09:23 | PHA.VAN.FU ---
Vancomycin Assessment / Plan
- Assessment
Renal Function: Stable
WBC's are: WNL
In the past 24 hrs, patient has been: Afebrile
Concomitant Antimicrobials: piperacillin/tazobactam
- Dosing Plan
Continue: Vanc 1250mg Q12H
- Monitoring Plan
Monitoring Comments: consider levels in next few days
- Follow Up
Pharmacy will continue to follow.
Vancomycin Follow UP
- -
Patient Age: 59
Vancomycin Day #: 3
Indication: Other
Requesting Provider: Jennie Anderson / Dr. Turcios
Pertinent Antimicrobial Allergies:
NKDA
Height / Weight:
Height 5 ft 10 in
Actual Weight 89.7 kg
Pertinent Past Medical History: DM 2
- Vital Signs / Lab Results
Temp Pulse Resp BP Pulse Ox
97.6 F 72 16 136/73 96
12/07/24 07:35 12/07/24 06:00 12/07/24 06:00 12/07/24 06:00 12/07/24 06:00
Lab Results - Hematology
12/05/24 12/06/24 12/07/24
17:02 04:30 03:49
WBC 23.3 H 10.0 6.4
Lab Results - Chemistry
12/05/24 12/05/24 12/06/24
17:02 17:42 04:30
BUN 18 14 15
Creatinine 1.3 0.9 0.8
Estimated Creat Clear 60 87 101
Albumin Cancelled 3.1 L 3.5
12/07/24
03:49
BUN 10
Creatinine 0.7
Estimated Creat Clear 116
Albumin
12/05/24 12/05/24 12/06/24
17:30 21:20 00:15
Lactic Acid 3.7 H 1.2 Cancelled
Microbiology Results
12/05/24 17:30 Blood Culture - Preliminary
Blood/Venous No Growth in 24 hours- Final report to follow
12/05/24 17:30 Blood Culture - Preliminary
Blood/Venous No Growth in 24 hours- Final report to follow
12/05/24 17:30 C. difficile GDH Antigen & Toxins - Final
Feces/Stool Negative for toxigenic C.difficile
[2024-12-07] MEDS: NOVOLOG FLEXPEN-MODERATE RESISTANCE 3 UNITS SC (09:25)
[2024-12-07] MEDS: QUESTRAN 4 GRAM PO (09:26)
--- NOTE | 2024-12-07 11:30 | PTCARENOTE ---
Assumed care of patient this morning. He is aaox3. Pt c/o of nose dryness, added humidification to overnight O2. He already has nasal spray at the bedside. Pt then reported back pain, medicated with PRN Morphine, see JUL. Still awaiting MRI of
lumbar spine. Pt steady on feet, able to walk to bathroom and wash himself up. Vital signs stable. Assessment, care and VS as charted.
[2024-12-07 12:17] LABS: Glucose - Point of Care 197 mg/dl (70-99)
[2024-12-07] MEDS: NOVOLOG FLEXPEN-MODERATE RESISTANCE 1 UNITS SC ×2 (12:39→17:44)
[2024-12-07] MEDS: NOVOLOG FLEXPEN 5 UNITS SC ×2 (12:40→17:46)
--- NOTE | 2024-12-07 14:07 | W.PN.HOSP.TC ---
Today's Communication/Plan
-
Afebrile
Nontoxic-appearing with no new complaints since admission
Remains on broad-spectrum antibiotics pending final cultures and MRI of the lumbar spine
Assessment / Plan
Assessment / Plan
Impression:
Concern for evolving sepsis/SIRS.
Acute mental status change secondary to toxic metabolic encephalopathy secondary to above.
Acute kidney injury
Normal anion gap metabolic acidosis
Hypokalemia
Hypocalcemia
Substance use disorder (urine drug screen positive for marijuana and cocaine)
Conditions prior to admission
Recent hospitalization outside hospital with projectile abscess status post I&D completed course of IV antibiotics via PICC line PICC line removed on 12/03
Diabetes type 2.
Essential hypertension.
Dyslipidemia
Status post pacemaker about 6 years ago.
BPH with LUTS
Plan:
Abd/Pelvis CT:
The appendix appears normal. No evidence for bowel obstruction or free intraperitoneal air. No gross evidence for significant bowel wall thickening or abnormal enhancement.
Significant endplate irregularity at L5-S1 with depression of the adjacent endplates. Main differential considerations of discitis versus severe changes of degenerative disc disease. There is air within the disc space, a finding which is reported to
favor changes of degenerative disc disease without infection. As warranted, further evaluation could be considered with MRI of the lumbar spine without and with contrast.
Presentation with fever, elevated white count, hypotension.
Differential diagnosis: Bacteremia (given recent PICC line), C. difficile ruled out, L5-S1 osteomyelitis given CT scan imaging.
Hypotension improved with IV fluids.
Abdominal examination benign.
CT as above with no evidence of collection.
Stool for C. difficile negative pending rest of cultures
Blood cultures pending
Urinalysis unremarkable.
Continue broad-spectrum antibiotics: Currently on vancomycin and Zosyn pending cultures
He does complain of a chronic lower back pain since accident. MRI pending.
ID consult appreciated
Acute kidney injury.
Normal anion gap metabolic acidosis
Improved with IV fluid bolus.
Diabetes.
Hemoglobin A1c 8.8.
Patient reports being on insulin at home with average dose: Lantus 34 units at bedtime and NovoLog 10 units AC
Continue Farxiga.
Hold metformin.
Basal bolus protocol following serial Accu-Cheks
Reintroduce standing dose of insulin
Cardiovascular.
Essential hypertension.
Status post pacemaker
Dyslipidemia.
Denies heart failure.
Medical records from primary cardiology pending.
Volume status compensated per
Hold furosemide acutely.
Continue metoprolol monitor for recurrent hypertension
Continue statin
BPH with LUTS
Continue Flomax
Monitor for retention
Anticipated Discharge: 24 - 48 hours
Subjective/Interval History
-
Date of Service: December 07, 2024
Objective Data
-
Labs:
Laboratory Results
12/07/24
03:49
WBC 6.4
Hgb 9.6 L
Hct 29.8 L
Plt Count 238
Sodium 140
Potassium 4.2
Chloride 110 H
Carbon Dioxide 24
BUN 10
Creatinine 0.7
Glucose 243 H
Calcium 9.5
Vital Signs:
Vital Signs
Temp Pulse Resp BP Pulse Ox
98.4 F 71 16 165/87 96
12/07/24 11:47 12/07/24 12:00 12/07/24 12:00 12/07/24 12:00 12/07/24 06:00
I&O
12/06/24 12/07/24 12/08/24
06:59 06:59 06:59
Intake Total 1450 / 1450 3395 / 3395
Output Total 1775 / 1775 4650 / 4650 400 / 400
Balance -325 / -325 -1255 / -1255 -400 / -400
Physical Exam
-
General: Well Developed and No Apparent Distress
HEENT: Normocephalic, Atraumatic and Moist Mucous Membranes
Respiratory: Clear to Auscultation
Cardiac: Regular Rhythm and S1/S2; Negative Murmur, Rub or Gallop
GI: Soft, Nontender, Nondistended and Normal Bowel Sounds; Negative Organomegaly
Rectal: Deferred by Provider
Musculoskeletal: No Clubbing, No Cyanosis and No Edema
Skin: Negative Rash
Neuro: Nonfocal/Grossly Intact
[2024-12-07 16:54] LABS: Glucose - Point of Care 199 mg/dl (70-99)
[2024-12-07] MEDS: LOVENOX 40 MG SC (17:46)
--- NOTE | 2024-12-07 19:44 | W.PN.ID1 ---
Date of Service
Date of Service: December 07, 2024
Today's Communication
none
Assessment / Plan
1.Admitted via ED with profound hypotension requiring pressors on arrival with profound leukocytosis with WBC 23.3 with PMN 82.8 % afebrile with LA 1.2
The patient responded to IVF and improved mental status ensued
The patient currently without fever or leukocytosis
2. Stool for C. difficile was negative with blood cultures and stool studies pending no need for oral Vancomycin
3. Patient on empiric antibiotic with Vancomycin and Zosyn pending culture results with all cultures currently with NGTD
4. Etiology of possible infection:
Diarrhea /GI source in seting of profound diarrhea
Recent PICC line on Ertapenem for unknown infection
Patent with recent history of anal abscess without current findings on CT imaging
Patient with Pacemaker/ICD with concern for bacteremia
Abnormal spine studies with endplate abnormality on CT at L5/S1
Thank you for calling Infectious Disease Consultation.
The ID team will follow with you
Please call us with any questions or concerns
Chief Complaint
-: Other (altered mental status now improved etiology uncertain)
Subjective / Review of Systems
Review of Systems: No Fever, No Chills, No Headache, No Pharyngitis, No Stiff Neck, No Swollen Lymph Nodes, No Cough, No Sputum Production, No Chest Pain, No Palpitations, No Abdominal Pain, No Nausea, No Vomiting, No Diarrhea, No Dysuria, No Joint
Pain and Skin Rash
Vital Signs / Physical Exam
Vital Signs
Vital Signs
Temp Pulse Resp BP Pulse Ox
99.6 F 95 14 181/96 98
12/07/24 16:27 12/07/24 16:27 12/07/24 16:27 12/07/24 16:27 12/07/24 16:27
Physical Exam
Constitutional: No Acute Distress, Well Developed, Comfortable and Non-toxic
Head: Normocephalic
Eyes: Pupils Equal, Pupils Round, No Conjunctival Hemorrhage and Sclera Anicteric
Oropharyngeal: Benign
Cardiovascular: Regular Rate
Pulmonary: Clear
Gastrointestinal: Soft, Non Tender, Non Distended, Normal Bowel Sounds, No Rebound and No Guarding
Skin: Warm and Dry
Wound: None
Neurological: Awake, Alert, Oriented and No Motor Deficits
Psychological: Calm (conversant and cooperative without complaint)
Objective Data
Lab Data
Lab Results
12/07/24 03:49
12/07/24 03:49
Estimated Creat Clear 116 ml/min 12/07/24 03:49
Lactic Acid Cancelled 12/06/24 00:15
Total Bilirubin 0.4 mg/dl (0.2-1.3) 12/05/24 17:42
AST 22 U/L (17-59) 12/05/24 17:42
ALT 13 U/L (0-50) 12/05/24 17:42
Alkaline Phosphatase 64 U/L (38-126) 12/05/24 17:42
Most recent labs reviewed.
Microbiology: Report Reviewed
Micro Results:
12/05/24 17:30 Blood Culture - Preliminary
Blood/Venous No Growth in 48 hours- Final report to follow
12/05/24 17:30 Blood Culture - Preliminary
Blood/Venous No Growth in 48 hours- Final report to follow
12/05/24 17:30 Salmonella/Shigella Culture - Preliminary
Feces/Stool Culture in Progress
Campylobacter Culture - Preliminary
Culture in Progress
Shiga Toxin Test - Pending
12/05/24 17:30 C. difficile GDH Antigen & Toxins - Final
Feces/Stool Negative for toxigenic C.difficile
Chest X-Ray: Report Reviewed
CT Scan: Report Reviewed
Care Review
Total Time Spent with Patient (in minutes): 45 in ICU patient setting
[2024-12-07 20:59] LABS: Glucose - Point of Care 252 mg/dl (70-99)
[2024-12-07] MEDS: LANTUS 0.2 UNITS SC (22:07)
[2024-12-08] MEDS: ZOSYN 50 IV ×4 (00:46→17:24)
[2024-12-08] MEDS: VANCOCIN 275 MG IV ×2 (05:36→18:19)
[2024-12-08] MEDS: MORPHINE SULFATE 2 MG IV (05:50)
[2024-12-08 06:00] VITALS: BMI 28.3
[2024-12-08 07:08] VITALS: BP 154/89
[2024-12-08 08:17] LABS: Glucose - Point of Care 259 mg/dl (70-99)
[2024-12-08] MEDS: QUESTRAN 4 GRAM PO (08:43)
[2024-12-08] MEDS: NEURONTIN 400 MG PO ×4 (08:43→21:27)
[2024-12-08] MEDS: FARXIGA 10 MG PO (08:44)
[2024-12-08] MEDS: FLOMAX 0.8 MG PO (08:44)
[2024-12-08] MEDS: LIPITOR 40 MG PO (08:44)
--- NOTE | 2024-12-08 09:20 | PHA.VAN.FU ---
Addendum entered and electronically signed by Christen Joseph [facility] [place] 12/08/24 16:12:
BUN & SCR ordered per protocol
Original Note:
Vancomycin Assessment / Plan
- Assessment
Renal Function: No New Labs Today
In the past 24 hrs, patient has been: Afebrile
Concomitant Antimicrobials: piperacillin/tazobactam
- Dosing Plan
Continue: Vanc 1250mg Q12H
- Monitoring Plan
Peak Level: 12/08 21:30
Trough Level: 12/09 05:30
Monitoring Comments: levels to be drawn after 5th maintenance
- Follow Up
Pharmacy will continue to follow.
Vancomycin Follow UP
- -
Patient Age: 59
Vancomycin Day #: 4
Indication: Other
Requesting Provider: Jennie Anderson / Dr. Turcios
Pertinent Antimicrobial Allergies:
NKDA
Height / Weight:
Height 5 ft 10 in
Actual Weight 89.7 kg
Pertinent Past Medical History: DM 2
- Vital Signs / Lab Results
Temp Pulse Resp BP Pulse Ox
98.1 F 86 18 171/79 96
12/07/24 23:22 12/07/24 23:22 12/07/24 23:22 12/07/24 23:22 12/07/24 23:22
Lab Results - Hematology
12/05/24 12/06/24 12/07/24
17:02 04:30 03:49
WBC 23.3 H 10.0 6.4
Lab Results - Chemistry
12/05/24 12/05/24 12/06/24
17:02 17:42 04:30
BUN 18 14 15
Creatinine 1.3 0.9 0.8
Estimated Creat Clear 60 87 101
Albumin Cancelled 3.1 L 3.5
12/07/24
03:49
BUN 10
Creatinine 0.7
Estimated Creat Clear 116
Albumin
12/05/24 12/05/24 12/06/24
17:30 21:20 00:15
Lactic Acid 3.7 H 1.2 Cancelled
Microbiology Results
12/05/24 17:30 Salmonella/Shigella Culture - Final
Feces/Stool No Salmonella, Shigella, Aeromonas or Plesiomonas species
isolated.
Campylobacter Culture - Final
No Campylobacter species isolated.
12/05/24 17:30 Blood Culture - Preliminary
Blood/Venous No Growth in 48 hours- Final report to follow
12/05/24 17:30 Blood Culture - Preliminary
Blood/Venous No Growth in 48 hours- Final report to follow
12/05/24 17:30 C. difficile GDH Antigen & Toxins - Final
Feces/Stool Negative for toxigenic C.difficile
[2024-12-08] MEDS: NOVOLOG FLEXPEN-MODERATE RESISTANCE 5 UNITS SC (09:48)
[2024-12-08] MEDS: NOVOLOG FLEXPEN 5 UNITS SC ×3 (09:49→17:26)
[2024-12-08 12:01] LABS: Glucose - Point of Care 168 mg/dl (70-99)
[2024-12-08] MEDS: NOVOLOG FLEXPEN-MODERATE RESISTANCE 1 UNITS SC ×2 (13:10→17:25)
[2024-12-08 15:08] VITALS: BP 148/83
--- NOTE | 2024-12-08 15:47 | W.PN.ID1 ---
Date of Service
Date of Service: December 08, 2024
Today's Communication
discussed findings with patient in detail
Assessment / Plan
1.Admitted via ED with profound hypotension requiring pressors on arrival with profound leukocytosis with WBC 23.3 with PMN 82.8 % afebrile with LA 1.2
The patient responded to IVF and improved mental status ensued
The patient currently without fever or leukocytosis
2. Stool for C. difficile was negative with blood cultures and stool studies pending no need for oral Vancomycin
3. Patient on empiric antibiotic with Vancomycin and Zosyn pending culture results with all cultures currently with NGTD
4. Etiology of possible infection:
Diarrhea /GI source in setting of profound diarrhea
Recent PICC line on Ertapenem for unknown infection
Patent with recent history of anal abscess without current findings on CT imaging
Patient with Pacemaker/ICD with concern for bacteremia
Abnormal spine studies with endplate abnormality on CT at L5/S1
Patient states that he awaiting MRI spine//would determine that his pacemaker is compatible with MRI imaging before proceeding
Currently with eosinophilia with resolution of extreme leukocytosis
Advise TTE / cardiology evaluation to assess status of defibrillator if not done this admission
5. Will order inflammatory markers to further assess this patient with worrisome acute findings on admission
Thank you for calling Infectious Disease Consultation.
The ID team will follow with you
Please call us with any questions or concerns
Chief Complaint
-: Other (altered mental status now improved etiology uncertain with patient with no new complaints and eager for MRI to image abnormal CT findings of spine.Prior to MRI must ascertain if pacemaker compatable with MRI imaging )
Subjective / Review of Systems
Review of Systems: No Fever, No Chills, No Headache, No Pharyngitis, No Stiff Neck, No Swollen Lymph Nodes, No Cough, No Sputum Production, No Chest Pain, No Palpitations, No Abdominal Pain, No Nausea, No Vomiting, No Diarrhea, No Dysuria, No Joint
Pain and No Skin Rash (while patient denies all symptoms not fully convinced above denials are accurate)
Vital Signs / Physical Exam
Vital Signs
Vital Signs
Temp Pulse Resp BP Pulse Ox
98 F 89 14 148/83 98
12/08/24 15:08 12/08/24 15:08 12/08/24 15:08 12/08/24 15:08 12/08/24 15:08
Physical Exam
Constitutional: Comfortable, Chronically Ill and Non-toxic
Head: Normocephalic
Eyes: Pupils Equal, Pupils Round, No Conjunctival Hemorrhage and Sclera Anicteric
Oropharyngeal: Benign
Cardiovascular: Regular Rate
Pulmonary: Clear and Non Labored
Gastrointestinal: Soft, Non Tender, Non Distended and Decreased Bowel Sounds
Extremities: Other (good ROM)
Skin: Warm and Dry
Wound: None
Neurological: Awake and No Motor Deficits (restless)
Psychological: Agitated
Objective Data
Lab Data
Lab Results
12/07/24 03:49
12/07/24 03:49
Estimated Creat Clear 116 ml/min 12/07/24 03:49
Lactic Acid Cancelled 12/06/24 00:15
Total Bilirubin 0.4 mg/dl (0.2-1.3) 12/05/24 17:42
AST 22 U/L (17-59) 12/05/24 17:42
ALT 13 U/L (0-50) 12/05/24 17:42
Alkaline Phosphatase 64 U/L (38-126) 12/05/24 17:42
Most recent labs reviewed.
Microbiology: Report Reviewed (results negative to date with one stool report pending)
Micro Results:
12/05/24 17:30 Salmonella/Shigella Culture - Final
Feces/Stool No Salmonella, Shigella, Aeromonas or Plesiomonas species
isolated.
Campylobacter Culture - Final
No Campylobacter species isolated.
Shiga Toxin Test - Pending
12/05/24 17:30 Blood Culture - Preliminary
Blood/Venous No Growth in 48 hours- Final report to follow
12/05/24 17:30 Blood Culture - Preliminary
Blood/Venous No Growth in 48 hours- Final report to follow
12/05/24 17:30 C. difficile GDH Antigen & Toxins - Final
Feces/Stool Negative for toxigenic C.difficile
Chest X-Ray: Report Reviewed
CT Scan: Report Reviewed
Care Review
Total Time Spent with Patient (in minutes): 35
[2024-12-08 16:36] LABS: Glucose - Point of Care 173 mg/dl (70-99)
--- NOTE | 2024-12-08 17:04 | W.PN.HOSP.TC ---
Today's Communication/Plan
-
CT concerning for L5-S1 discitis osteomyelitis
Inflammatory markers pending
Continue empiric antibiotics
Spine surgery�neurosurgery consultation
Assessment / Plan
Assessment / Plan
Impression:
Concern for evolving sepsis/SIRS.
Acute mental status change secondary to toxic metabolic encephalopathy secondary to above.
Acute kidney injury
Normal anion gap metabolic acidosis
Hypokalemia
Hypocalcemia
Substance use disorder (urine drug screen positive for marijuana and cocaine)
Conditions prior to admission
Recent hospitalization outside hospital with projectile abscess status post I&D completed course of IV antibiotics via PICC line PICC line removed on 12/03
Diabetes type 2.
Essential hypertension.
Dyslipidemia
Status post pacemaker about 6 years ago.
BPH with LUTS
Plan:
Abd/Pelvis CT:
The appendix appears normal. No evidence for bowel obstruction or free intraperitoneal air. No gross evidence for significant bowel wall thickening or abnormal enhancement.
Significant endplate irregularity at L5-S1 with depression of the adjacent endplates. Main differential considerations of discitis versus severe changes of degenerative disc disease. There is air within the disc space, a finding which is reported to
favor changes of degenerative disc disease without infection. As warranted, further evaluation could be considered with MRI of the lumbar spine without and with contrast.
Presentation with fever, elevated white count, hypotension.
Differential diagnosis: Bacteremia (given recent PICC line), C. difficile ruled out, L5-S1 osteomyelitis given CT scan imaging.
Hypotension improved with IV fluids.
Abdominal examination benign.
CT as above with no evidence of collection.
Stool for C. difficile negative pending rest of cultures
Blood cultures pending
Urinalysis unremarkable.
CT scan highly suspicious for L5-S1 discitis (not able to perform MRI given pacemaker issues)
Persistent pain which is chronic with no neurologic abnormalities otherwise.
Inflammatory markers ordered
Consider iRad biopsy, although while on antibiotics that could be noninformative
Continue broad-spectrum antibiotics: Currently on vancomycin and Zosyn pending cultures
ID consult appreciated
Neurosurgery�spine consult for other recommendations
Acute kidney injury.
Normal anion gap metabolic acidosis
Improved with IV fluid bolus.
Diabetes.
Hemoglobin A1c 8.8.
Patient reports being on insulin at home with average dose: Lantus 34 units at bedtime and NovoLog 10 units AC
Continue Farxiga.
Hold metformin.
Basal bolus protocol following serial Accu-Cheks
Reintroduce standing dose of insulin
Cardiovascular.
Essential hypertension.
Status post pacemaker
Dyslipidemia.
Denies heart failure.
Medical records from primary cardiology pending.
Volume status compensated per
Hold furosemide acutely.
Continue metoprolol monitor for recurrent hypertension
Continue statin
BPH with LUTS
Continue Flomax
Monitor for retention
Anticipated Discharge: > 48 hours
Subjective/Interval History
-
Date of Service: December 08, 2024
Objective Data
-
Labs:
Laboratory Results
12/08/24
16:12
Alkaline Phosphatase Pending
Vital Signs:
Vital Signs
Temp Pulse Resp BP Pulse Ox
98 F 89 14 148/83 98
12/08/24 15:08 12/08/24 15:08 12/08/24 15:08 12/08/24 15:08 12/08/24 15:08
I&O
12/07/24 12/08/24 12/09/24
06:59 06:59 06:59
Intake Total 3395 / 3395 720 / 720
Output Total 4650 / 4650 400 / 400
Balance -1255 / -1255 320 / 320
Physical Exam
-
General: Well Developed and No Apparent Distress
HEENT: Normocephalic, Atraumatic and Moist Mucous Membranes
Respiratory: Clear to Auscultation
Cardiac: Regular Rhythm and S1/S2; Negative Murmur, Rub or Gallop
GI: Soft, Nontender, Nondistended and Normal Bowel Sounds; Negative Organomegaly
Rectal: Deferred by Provider
Musculoskeletal: No Clubbing, No Cyanosis and No Edema
Skin: Negative Rash
Neuro: Nonfocal/Grossly Intact
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
[2024-12-08] MEDS: LOVENOX 40 MG SC (17:24)
[2024-12-08 18:41] LABS: C-Reactive Protein 12.30 mg/L (0.0-10.00)
[2024-12-08] MEDS: LANTUS 0.2 UNITS SC (21:26)
[2024-12-08 22:08] LABS: Glucose - Point of Care 332 mg/dl (70-99)
[2024-12-08] MEDS: MELATONIN 5 MG PO (22:30)
[2024-12-08 22:32] LABS: Alkaline Phosphatase 71 U/L (38-126); LDH 194 U/L (120-246)
[2024-12-08 23:25] VITALS: BP 148/77
[2024-12-09] MEDS: ZOSYN 50 IV ×4 (00:10→17:22)
[2024-12-09 06:14] LABS: Blood Urea Nitrogen 7 mg/dl (9-20); Estimated Creatinine Clearance 116 ml/min
[2024-12-09] MEDS: VANCOCIN 275 MG IV ×2 (06:33→18:08)
[2024-12-09 07:20] VITALS: BP 131/85
[2024-12-09 08:19] LABS: Glucose - Point of Care 210 mg/dl (70-99)
[2024-12-09] MEDS: QUESTRAN 4 GRAM PO (08:27)
[2024-12-09] MEDS: NEURONTIN 400 MG PO ×4 (08:28→21:47)
[2024-12-09] MEDS: FARXIGA 10 MG PO (08:28)
[2024-12-09] MEDS: FLOMAX 0.8 MG PO (08:28)
[2024-12-09] MEDS: LIPITOR 40 MG PO (08:28)
--- NOTE | 2024-12-09 08:52 | PHA.VAN.FU ---
Addendum entered and electronically signed by Christen Joseph [facility] 12/09/24 10:29:
Agree with assessment and plan
Original Note:
Vancomycin Assessment / Plan
- Assessment
Renal Function: Stable
WBC's are: WNL
In the past 24 hrs, patient has been: Afebrile
Concomitant Antimicrobials: piperacillin/tazobactam
- Assessment - Therapeutic Drug Monitoring
Extrapolated Cmax (mcg/mL): 24.7
Peak level was drawn: Appropriately (drawn ~2.5H after the END of infusion)
Extrapolated Cmin (mcg/mL): 11.1
Trough Drawn: Appropriately
Levels were drawn: At steady state
Calculated AUC (mcg*h/mL): 411
Calculated ke: 0.0760
Calculated half life (H): 9.1
Calculated Vd (L): 79.99
Calculated Vanc CL (ml/min): 101.30
- Dosing Plan
Continue: 1250mg q12h
- Monitoring Plan
No level(s) ordered at this time: consider in next few days
- Follow Up
Pharmacy will continue to follow.
Vancomycin Follow UP
- -
Patient Age: 59
Patient Sex: Male
Vancomycin Day #: 5
Indication: Other
Requesting Provider: Jennie Anderson / Dr. Turcios
Pertinent Antimicrobial Allergies:
NKDA
Height / Weight:
Height 5 ft 10 in
Actual Weight 89.358 kg
IBW in k kg
Adjusted BW in k.4 kg
Pertinent Past Medical History: DM 2
- Vital Signs / Lab Results
Temp Pulse Resp BP Pulse Ox
98.5 F 85 18 131/85 96
12/09/24 07:20 12/09/24 07:20 12/09/24 07:20 12/09/24 07:20 12/09/24 07:20
Lab Results - Hematology
12/07/24
03:49
WBC 6.4
Lab Results - Chemistry
12/07/24 12/09/24
03:49 05:32
BUN 10 7 L
Creatinine 0.7 0.7
Estimated Creat Clear 116 116
Microbiology Results
12/05/24 17:30 Blood Culture - Preliminary
Blood/Venous No Growth in 72 hours- Final report to follow
12/05/24 17:30 Blood Culture - Preliminary
Blood/Venous No Growth in 72 hours- Final report to follow
12/05/24 17:30 Salmonella/Shigella Culture - Final
Feces/Stool No Salmonella, Shigella, Aeromonas or Plesiomonas species
isolated.
Campylobacter Culture - Final
No Campylobacter species isolated.
Therapeutic Drug Monitoring
Vancomycin Peak 20.6 ug/ml (18-26) 12/08/24 22:12
Vancomycin Trough 11.8 ug/ml (5-20) 12/09/24 05:32
[2024-12-09] MEDS: NOVOLOG FLEXPEN 5 UNITS SC ×3 (09:02→17:25)
[2024-12-09] MEDS: NOVOLOG FLEXPEN-MODERATE RESISTANCE 3 UNITS SC (09:02)
[2024-12-09] MEDS: MORPHINE SULFATE 2 MG IV (10:48)
[2024-12-09 11:04] LABS: C-Reactive Protein 10.50 mg/L (0.0-10.00)
--- NOTE | 2024-12-09 11:51 | PN.CDI ---
CDI
- -
CDI:
Physician Documentation Request
Admit Date: 12/05/24 20:06
Dear Doctor Amanda,
H&P states pt admitted with severe sepsis. There is concern for L5-S1 discitis osteomyelitis. ED record also indicates hypotension.
12/05 patient was on Levophed. Patient also diagnosed with toxic metabolic encephalopathy, JENNA
Please clarify which of the following is the most likely etiology of the above symptoms and treatment rendered:
Septic shock
Shock other - please indicate type
Hypotension only
Other
Use of terms such as suspected, likely, concern for, or probable (associated with a specific diagnosis that is being evaluated, monitored, or treated as if it exists) are acceptable and can be coded in the inpatient setting, when documented at the
time of discharge.
Thank you,
Radha Delong RN, BSN
CDI Specialist
tiger text
Please use your independent medical judgment in providing your response.
[2024-12-09 12:15] LABS: Glucose - Point of Care 141 mg/dl (70-99)
[2024-12-09] MEDS: NOVOLOG FLEXPEN-MODERATE RESISTANCE SC (12:15)
[2024-12-09 15:00] VITALS: BP 137/77
[2024-12-09 17:20] LABS: Glucose - Point of Care 197 mg/dl (70-99)
--- NOTE | 2024-12-09 17:20 | W.PN.HOSP.TC ---
Today's Communication/Plan
-
With concern for possible discitis, osteomyelitis at L5-S1 (presentation with SIRS with so far no apparent source, although possibly partially treated with antibiotics addressing recent perirectal abscess) will go ahead with interventional radiology
consult for biopsy.
Assessment / Plan
Assessment / Plan
Impression:
Concern for evolving sepsis/SIRS.
Acute mental status change secondary to toxic metabolic encephalopathy secondary to above.
Acute kidney injury
Normal anion gap metabolic acidosis
Hypokalemia
Hypocalcemia
Substance use disorder (urine drug screen positive for marijuana and cocaine)
Adrenaloma
Conditions prior to admission
Recent hospitalization outside hospital with projectile abscess status post I&D completed course of IV antibiotics via PICC line PICC line removed on 12/03
Diabetes type 2.
Essential hypertension.
Dyslipidemia
Status post pacemaker about 6 years ago.
BPH with LUTS
Plan:
Abd/Pelvis CT:
The appendix appears normal. No evidence for bowel obstruction or free intraperitoneal air. No gross evidence for significant bowel wall thickening or abnormal enhancement.
Significant endplate irregularity at L5-S1 with depression of the adjacent endplates. Main differential considerations of discitis versus severe changes of degenerative disc disease. There is air within the disc space, a finding which is reported to
favor changes of degenerative disc disease without infection. As warranted, further evaluation could be considered with MRI of the lumbar spine without and with contrast.
Lumbar spine CT:
There is endplate irregularities at the L5-S1 level with suggestion of mild anterior paraspinal fat stranding concerning for discitis/osteomyelitis although severe degenerative endplate changes are possible. There is no paraspinal soft tissue
collection identified. Consider dedicated MRI lumbar spine with and without contrast for further evaluation.
Multilevel degenerative changes most pronounced at L5-S1 with resultant moderate/severe canal stenosis and moderate bilateral neuroforaminal narrowing. Individual characterizations as above.
Presentation with fever, elevated white count, hypotension.
Differential diagnosis: Bacteremia (given recent PICC line), C. difficile ruled out, L5-S1 osteomyelitis given CT scan imaging.
Hypotension improved with IV fluids.
Abdominal examination benign.
CT as above with no evidence of collection.
Stool for C. difficile negative pending rest of cultures
Blood cultures negative to date
Urinalysis unremarkable.
CT scan highly suspicious for L5-S1 discitis (not able to perform MRI given pacemaker issues)
Persistent pain which is chronic with no neurologic abnormalities otherwise.
Inflammatory markers possibly falsely normal given recent treatment with antibiotics for. Rectal abscess.
With concern for possible discitis, osteomyelitis at L5-S1 (presentation with SIRS with so far no apparent source, although possibly partially treated with antibiotics addressing recent perirectal abscess) will go ahead with interventional radiology
consult for biopsy.
Continue broad-spectrum antibiotics: Currently on vancomycin and Zosyn pending cultures
Infectious disease and neurosurgery input appreciated.
Acute kidney injury.
Normal anion gap metabolic acidosis
Improved with IV fluid bolus.
Diabetes.
Hemoglobin A1c 8.8.
Patient reports being on insulin at home with average dose: Lantus 34 units at bedtime and NovoLog 10 units AC
Continue Farxiga.
Hold metformin.
Basal bolus protocol following serial Accu-Cheks
Reintroduce standing dose of insulin
Cardiovascular.
Essential hypertension.
Status post pacemaker
Dyslipidemia.
Denies heart failure.
Medical records from primary cardiology pending.
Volume status compensated per
Hold furosemide acutely.
Continue metoprolol monitor for recurrent hypertension
Continue statin
BPH with LUTS
Continue Flomax
Monitor for retention
Anticipated Discharge: > 48 hours
Subjective/Interval History
-
Date of Service: December 09, 2024
Objective Data
-
Labs:
Laboratory Results
12/09/24
05:32
BUN 7 L
Creatinine 0.7
Vital Signs:
Vital Signs
Temp Pulse Resp BP Pulse Ox
98.4 F 89 20 137/77 99
12/09/24 15:00 12/09/24 15:00 12/09/24 15:00 12/09/24 15:00 12/09/24 15:00
I&O
12/08/24 12/09/24 12/10/24
06:59 06:59 06:59
Intake Total 720 / 720 2640 / 2640 240 / 240
Output Total 400 / 400
Balance 320 / 320 2640 / 2640 240 / 240
Physical Exam
-
General: Well Developed and No Apparent Distress
HEENT: Normocephalic, Atraumatic and Moist Mucous Membranes
Respiratory: Clear to Auscultation
Cardiac: Regular Rhythm and S1/S2; Negative Murmur, Rub or Gallop
GI: Soft, Nontender, Nondistended and Normal Bowel Sounds; Negative Organomegaly
Rectal: Deferred by Provider
Musculoskeletal: No Clubbing, No Cyanosis and No Edema
Skin: Negative Rash
Neuro: Nonfocal/Grossly Intact
[2024-12-09] MEDS: LOVENOX 40 MG SC (17:22)
[2024-12-09] MEDS: NOVOLOG FLEXPEN-MODERATE RESISTANCE 1 UNITS SC (17:24)
--- NOTE | 2024-12-09 17:53 | W.PN.ID1 ---
Date of Service
Date of Service: December 09, 2024
Today's Communication
Patient discussed with hospitalist with plan for IR biopsy and culture of endplate area of L5/S1 to evaluate for osteomyelitis or paraspinal infection
Assessment / Plan
1.Admitted via ED with profound hypotension requiring pressors on arrival with profound leukocytosis with WBC 23.3 with PMN 82.8 % afebrile with LA 1.2
The patient responded to IVF and improved mental status ensued
The patient currently without fever or leukocytosis
2. Stool for C. difficile was negative with blood cultures and stool studies pending no need for oral Vancomycin
3. Patient on empiric antibiotic with Vancomycin and Zosyn pending culture results with all cultures currently with NGTD
4. Etiology of possible infection:
Diarrhea /GI source in setting of profound diarrhea
Recent PICC line on Ertapenem for unknown infection
Patent with recent history of anal abscess without current findings on CT imaging with the exception of L5/S1 endplate abnormality which could be suggestive of osteomyelitis
Patient with Pacemaker/ICD with concern for bacteremia
Abnormal spine studies with endplate abnormality on CT at L5/S1
Patient states that he awaiting MRI spine//would determine that his pacemaker is compatible with MRI imaging before proceeding
Currently with eosinophilia with resolution of extreme leukocytosis
Advise TTE / cardiology evaluation to assess status of defibrillator if not done this admission
5. Will order inflammatory markers to further assess this patient with worrisome acute findings on admission
Thank you for calling Infectious Disease Consultation.
The ID team will follow with you
Please call us with any questions or concerns
Chief Complaint
-: Other (altered mental status now improved etiology uncertain with patient with no new complaints and eager for MRI to image abnormal CT findings of spine.Prior to MRI must ascertain if pacemaker compatable with MRI imaging )
Subjective / Review of Systems
The patient has greatly improved since admission with resolution of fever, leukocytosis and concerning altered mental status. Etiology has proved elusive with multiple possiblities in the setting of negative cultures. The recent perirectal abscess
coupled with abormal imaging of the spien raises the possiblitty of spine involvement with osteomyelitis. Toward that end plan for IR guided paraspinal assessment christiano biopsy and culture are planned.
Review of Systems: No Fever, No Chills, No Headache, No Pharyngitis, No Stiff Neck, No Swollen Lymph Nodes, No Cough, No Sputum Production, No Chest Pain, No Palpitations, No Abdominal Pain, No Nausea, No Vomiting, No Diarrhea, No Dysuria, No Joint
Pain and No Skin Rash
Vital Signs / Physical Exam
Vital Signs
Vital Signs
Temp Pulse Resp BP Pulse Ox
98.4 F 89 20 137/77 99
12/09/24 15:00 12/09/24 15:00 12/09/24 15:00 12/09/24 15:00 12/09/24 15:00
Physical Exam
Constitutional: Well Developed, Comfortable, Chronically Ill and Non-toxic
Head: Normocephalic
Eyes: Pupils Round, No Conjunctival Hemorrhage and Sclera Anicteric
Oropharyngeal: Benign
Pulmonary: Clear and Non Labored
Gastrointestinal: Non Tender and Non Distended
Extremities: Pulses
Skin: Warm and Dry
Wound: None
Neurological: No Motor Deficits
Psychological: Calm
Objective Data
Lab Data
Lab Results
12/07/24 03:49
12/09/24 05:32
ESR 20 mm/hour (0-20) 12/08/24 18:01
Estimated Creat Clear 116 ml/min 12/09/24 05:32
Lactic Acid Cancelled 12/06/24 00:15
Total Bilirubin 0.4 mg/dl (0.2-1.3) 12/05/24 17:42
AST 22 U/L (17-59) 12/05/24 17:42
ALT 13 U/L (0-50) 12/05/24 17:42
Alkaline Phosphatase 71 U/L (38-126) 12/08/24 22:12
C-Reactive Protein 10.50 mg/L (0.0-10.00) H 12/09/24 05:32
Most recent labs reviewed.
Microbiology: Report Reviewed
Micro Results:
12/05/24 17:30 Blood Culture - Preliminary
Blood/Venous No Growth in 4 days- Final report to follow
12/05/24 17:30 Blood Culture - Preliminary
Blood/Venous No Growth in 4 days- Final report to follow
12/05/24 17:30 Salmonella/Shigella Culture - Final
Feces/Stool No Salmonella, Shigella, Aeromonas or Plesiomonas species
isolated.
Campylobacter Culture - Final
No Campylobacter species isolated.
Shiga Toxin Test - Final
No E. coli Shiga Toxin 1 or 2 detected.
12/05/24 17:30 C. difficile GDH Antigen & Toxins - Final
Feces/Stool Negative for toxigenic C.difficile
Chest X-Ray: Report Reviewed
CT Scan: Report Reviewed
Care Review
Plan reviewed with: Physician (plan of care reviewed with Hospitalist)
Total Time Spent with Patient (in minutes): 35
[2024-12-09 21:15] LABS: Glucose - Point of Care 281 mg/dl (70-99)
[2024-12-09] MEDS: LANTUS 0.2 UNITS SC (21:47)
[2024-12-09] MEDS: MELATONIN 5 MG PO (21:47)
[2024-12-09 23:00] VITALS: BP 137/64
[2024-12-10] VITALS (9 sets, daily range): BP systolic 78–179; BP diastolic 81–93; BMI 28.8
[2024-12-10] MEDS: ZOSYN 50 IV ×4 (00:58→17:23)
[2024-12-10] MEDS: VANCOCIN 275 MG IV ×2 (05:41→18:28)
[2024-12-10 07:07] LABS: INR 0.97; PT 13.4 Sec (11.4-14.6)
[2024-12-10 07:54] LABS: Glucose - Point of Care 178 mg/dl (70-99)
--- NOTE | 2024-12-10 08:41 | CM ---
Lat documentation: CM met with patient 12/08
spoke with Dimitry from [facility] completed 11/28
PLAN: TBD, continue to follow hospital progress, CM to follow for needs
--- NOTE | 2024-12-10 08:42 | PHA.VAN.FU ---
Addendum entered and electronically signed by Christen Joseph RPH 12/10/24 09:08:
Agree with assessment and plan
Original Note:
Vancomycin Assessment / Plan
- Assessment
Renal Function: No New Labs Today
In the past 24 hrs, patient has been: Afebrile
Concomitant Antimicrobials: piperacillin/tazobactam
- Dosing Plan
Continue: 1250mg q12h
- Monitoring Plan
No level(s) ordered at this time: consider this weekend to reassess patient PK
- Follow Up
Pharmacy will continue to follow.
Vancomycin Follow UP
- -
Patient Age: 59
Patient Sex: Male
Vancomycin Day #: 6
Indication: Other
Requesting Provider: Jennie Anderson / Dr. Turcios
Pertinent Antimicrobial Allergies:
NKDA
Height / Weight:
Height 5 ft 10 in
Actual Weight 90.945 kg
IBW in k kg
Adjusted BW in k.4 kg
Pertinent Past Medical History: DM 2
- Vital Signs / Lab Results
Temp Pulse Resp BP Pulse Ox
98.1 F 83 19 139/85 99
12/10/24 07:00 12/10/24 07:00 12/10/24 07:00 12/10/24 07:00 12/10/24 07:00
Lab Results - Chemistry
12/09/24
05:32
BUN 7 L
Creatinine 0.7
Estimated Creat Clear 116
Microbiology Results
12/05/24 17:30 Blood Culture - Preliminary
Blood/Venous No Growth in 4 days- Final report to follow
12/05/24 17:30 Blood Culture - Preliminary
Blood/Venous No Growth in 4 days- Final report to follow
12/05/24 17:30 Salmonella/Shigella Culture - Final
Feces/Stool No Salmonella, Shigella, Aeromonas or Plesiomonas species
isolated.
Campylobacter Culture - Final
No Campylobacter species isolated.
Shiga Toxin Test - Final
No E. coli Shiga Toxin 1 or 2 detected.
Therapeutic Drug Monitoring
Vancomycin Peak 20.6 ug/ml (18-26) 12/08/24 22:12
Vancomycin Trough 11.8 ug/ml (5-20) 12/09/24 05:32
[2024-12-10] MEDS: FARXIGA PO (09:00)
[2024-12-10] MEDS: NEURONTIN PO ×2 (09:00→13:00)
[2024-12-10] MEDS: NOVOLOG FLEXPEN SC ×2 (09:00→11:45)
[2024-12-10] MEDS: NOVOLOG FLEXPEN-MODERATE RESISTANCE 1 UNITS SC (09:01)
[2024-12-10] MEDS: FLOMAX PO (09:01)
[2024-12-10] MEDS: LIPITOR PO (09:01)
[2024-12-10] MEDS: QUESTRAN PO (09:01)
[2024-12-10] MEDS: NOVOLOG FLEXPEN-MODERATE RESISTANCE SC ×2 (11:45→16:08)
--- NOTE | 2024-12-10 12:45 | CM ---
Met with patient Leola
patient at IR for biopsy
PLAN: TBD, follow hospital progression, CM to follow for needs
--- NOTE | 2024-12-10 12:49 | W.PN.HOSP.TC ---
Today's Communication/Plan
-
bone marrow culture/bx
Assessment / Plan
Assessment / Plan
Impression:
Concern for evolving sepsis/SIRS.
Acute mental status change secondary to toxic metabolic encephalopathy secondary to above.
Acute kidney injury
Normal anion gap metabolic acidosis
Hypokalemia
Hypocalcemia
Substance use disorder (urine drug screen positive for marijuana and cocaine)
Adrenaloma
Conditions prior to admission
Recent hospitalization outside hospital with projectile abscess status post I&D completed course of IV antibiotics via PICC line PICC line removed on 12/03
Diabetes type 2.
Essential hypertension.
Dyslipidemia
Status post pacemaker about 6 years ago.
BPH with LUTS
Plan:
Abd/Pelvis CT:
The appendix appears normal. No evidence for bowel obstruction or free intraperitoneal air. No gross evidence for significant bowel wall thickening or abnormal enhancement.
Significant endplate irregularity at L5-S1 with depression of the adjacent endplates. Main differential considerations of discitis versus severe changes of degenerative disc disease. There is air within the disc space, a finding which is reported to
favor changes of degenerative disc disease without infection. As warranted, further evaluation could be considered with MRI of the lumbar spine without and with contrast.
Lumbar spine CT:
There is endplate irregularities at the L5-S1 level with suggestion of mild anterior paraspinal fat stranding concerning for discitis/osteomyelitis although severe degenerative endplate changes are possible. There is no paraspinal soft tissue
collection identified. Consider dedicated MRI lumbar spine with and without contrast for further evaluation.
Multilevel degenerative changes most pronounced at L5-S1 with resultant moderate/severe canal stenosis and moderate bilateral neuroforaminal narrowing. Individual characterizations as above.
Presentation with fever, elevated white count, hypotension.
Differential diagnosis: C. difficile ruled out, L5-S1 osteomyelitis given CT scan imaging.
Hypotension improved with IV fluids.
Abdominal examination benign.
CT as above with no evidence of collection.
Stool for C. difficile negative pending rest of cultures
Blood cultures negative to date
Urinalysis unremarkable.
CT scan highly suspicious for L5-S1 discitis (not able to perform MRI given pacemaker issues)
Persistent pain which is chronic with no neurologic abnormalities otherwise.
Inflammatory markers possibly falsely normal given recent treatment with antibiotics for Rectal abscess.
With concern for possible discitis, osteomyelitis at L5-S1 (presentation with SIRS with so far no apparent source, although possibly partially treated with antibiotics addressing recent perirectal abscess) will go ahead with interventional radiology
consult for biopsy. Planned for today, with Cultures and Path
Continue broad-spectrum antibiotics: Currently on vancomycin and Zosyn pending cultures
Infectious disease and neurosurgery input appreciated.
Acute kidney injury.
Normal anion gap metabolic acidosis
Improved with IV fluid bolus.
Diabetes.
Hemoglobin A1c 8.8.
Patient reports being on insulin at home with average dose: Lantus 34 units at bedtime and NovoLog 10 units AC
Continue Farxiga.
Hold metformin.
Basal bolus protocol following serial Accu-Cheks
Reintroduce standing dose of insulin
#Left Adrenal Mass
Consider follow-up CT or MRI of the abdomen with attention to the adrenal glands in 6 months.
Cardiovascular.
Essential hypertension.
Status post pacemaker
Dyslipidemia.
Denies heart failure.
Medical records from primary cardiology pending.
Volume status compensated per
Hold furosemide acutely.
Continue metoprolol monitor for recurrent hypertension
Continue statin
BPH with LUTS
Continue Flomax
Monitor for retention
Anticipated Discharge: > 48 hours
Subjective/Interval History
-
Date of Service: December 10, 2024
No acute events overnight
Objective Data
-
Labs:
Laboratory Results
12/10/24
06:40
PT 13.4
INR 0.97
Vital Signs:
Vital Signs
Temp Pulse Resp BP Pulse Ox
97.9 F 78 19 179/92 99
12/10/24 11:10 12/10/24 11:10 12/10/24 11:10 12/10/24 11:10 12/10/24 11:10
I&O
12/09/24 12/10/24 12/11/24
06:59 06:59 06:59
Intake Total 2639
Balance 2639
Review of Systems
-
History Source: Patient
All other systems: Not reviewed unless documented
Physical Exam
-
General: Well Developed and No Apparent Distress
HEENT: Normocephalic, Atraumatic and Moist Mucous Membranes
Respiratory: Clear to Auscultation
Cardiac: Regular Rhythm and S1/S2; Negative Murmur, Rub or Gallop
GI: Soft, Nontender, Nondistended and Normal Bowel Sounds; Negative Organomegaly
Rectal: Deferred by Provider
Musculoskeletal: No Clubbing, No Cyanosis and No Edema
Skin: Negative Rash
Neuro: Nonfocal/Grossly Intact
Data Reviewed
-
CT Scan: Report Reviewed by me
Labs: Labs Reviewed by me
--- NOTE | 2024-12-10 13:00 | PTCARENOTE ---
orders in [facility] for pathology and tissue culture, confirmed with Samantha Crabtree in [facility] [place] that specimens both can be sent on dry telfa in a sterile container.
--- NOTE | 2024-12-10 14:10 | PTCARENOTE ---
patient returned from IR s/p bone biopsy drowsy,denies pain, lungs clear, no sob, apical regular, lower back dressing with small amount of blood drainage, vss, will continue to monitor.
[2024-12-10 16:01] LABS: Glucose - Point of Care 109 mg/dl (70-99)
[2024-12-10] MEDS: NEURONTIN 400 MG PO ×2 (16:11→20:53)
[2024-12-10] MEDS: FLOMAX 0.8 MG PO (16:12)
[2024-12-10] MEDS: FARXIGA 10 MG PO (16:12)
[2024-12-10] MEDS: LIPITOR 40 MG PO (16:12)
[2024-12-10] MEDS: NOVOLOG FLEXPEN 5 UNITS SC (16:13)
--- NOTE | 2024-12-10 16:45 | W.PN.ID1 ---
Date of Service
Date of Service: December 10, 2024
Today's Communication
case discussed with nurse and colleague so that appropriate specimens could be obtained and appropriately assessed
Assessment / Plan
1.Admitted via ED with profound hypotension requiring pressors on arrival with profound leukocytosis with WBC 23.3 with PMN 82.8 % afebrile with LA 1.2
The patient responded to IVF and improved mental status ensued
The patient currently without fever or leukocytosis
2. Stool for C. difficile was negative with blood cultures and stool studies pending no need for oral Vancomycin
3. Patient on empiric antibiotic with Vancomycin and Zosyn pending culture results with all cultures currently with NGTD
4. Etiology of possible infection:
Diarrhea /GI source in setting of profound diarrhea
Recent PICC line on Ertapenem for unknown infection
Patent with recent history of anal abscess without current findings on CT imaging with the exception of L5/S1 endplate abnormality which could be suggestive of osteomyelitis
Patient with Pacemaker/ICD with concern for bacteremia
Abnormal spine studies with endplate abnormality on CT at L5/S1 with IR guided biopsy today with specimen sent to pathology and specimen sent for culture
Currently with eosinophilia with resolution of extreme leukocytosis
Advise TTE / cardiology evaluation to assess status of defibrillator if not done this admission
5. Inflammatory markers to further assess this patient with worrisome acute findings on admission are currently normal or mildly elevated
6. Spine biopsy result to determine need for D/C on antibiotic targeted or empiric for concerning L/S spine endplate abnormality
consider orthopedic consultation as needed to assess pending results of today's biopsy
Thank you for calling Infectious Disease Consultation.
The ID team will follow with you
Please call us with any questions or concerns
Chief Complaint
-: Clinical Sepsis (with intensive care admission with no obvious source of infection) and Other (altered mental status now improved etiology uncertain with patient with no new complaints and eager for MRI to image abnormal CT findings of
spine.Prior to MRI must ascertain if pacemaker compatable with MRI imaging )
Subjective / Review of Systems
Review of Systems: No Fever, No Chills, No Headache, No Pharyngitis, No Stiff Neck, No Swollen Lymph Nodes, No Cough, No Sputum Production, No Chest Pain, No Palpitations, No Abdominal Pain, No Nausea, No Vomiting, No Diarrhea, No Dysuria, No Joint
Pain and No Skin Rash
Vital Signs / Physical Exam
Vital Signs
Vital Signs
Temp Pulse Resp BP Pulse Ox
98.4 F 86 19 160/91 99
12/10/24 14:42 12/10/24 14:42 12/10/24 14:42 12/10/24 14:42 12/10/24 14:42
Physical Exam
Constitutional: No Acute Distress, Well Developed, Comfortable, Chronically Ill and Non-toxic
Head: Normocephalic
Eyes: Pupils Equal, Pupils Round, No Conjunctival Hemorrhage and Sclera Anicteric
Oropharyngeal: Benign
Cardiovascular: Regular Rate
Pulmonary: Clear and Non Labored
Gastrointestinal: Soft, Non Tender and Non Distended
Extremities: Other (good ROM)
Musculoskeletal: Spinal Tenderness
Skin: Warm and Dry
Wound: None
Neurological: Awake, Alert, Oriented, AO x 3, Normal Muscle Strength and No Motor Deficits
Psychological: Calm and Agitated (at times )
Objective Data
Lab Data
Lab Results
12/07/24 03:49
12/09/24 05:32
ESR 20 mm/hour (0-20) 12/08/24 18:01
PT 13.4 Sec (11.4-14.6) 12/10/24 06:40
INR 0.97 12/10/24 06:40
Estimated Creat Clear 116 ml/min 12/09/24 05:32
Lactic Acid Cancelled 12/06/24 00:15
Total Bilirubin 0.4 mg/dl (0.2-1.3) 12/05/24 17:42
AST 22 U/L (17-59) 12/05/24 17:42
ALT 13 U/L (0-50) 12/05/24 17:42
Alkaline Phosphatase 71 U/L (38-126) 12/08/24 22:12
C-Reactive Protein 10.50 mg/L (0.0-10.00) H 12/09/24 05:32
Most recent labs reviewed.
Microbiology: Report Reviewed
Micro Results:
12/10/24 12:45 Tissue Culture - Pending
Bl Bone Marrow Gram Stain - Preliminary
12/05/24 17:30 Blood Culture - Preliminary
Blood/Venous No Growth in 4 days- Final report to follow
12/05/24 17:30 Blood Culture - Preliminary
Blood/Venous No Growth in 4 days- Final report to follow
12/05/24 17:30 Salmonella/Shigella Culture - Final
Feces/Stool No Salmonella, Shigella, Aeromonas or Plesiomonas species
isolated.
Campylobacter Culture - Final
No Campylobacter species isolated.
Shiga Toxin Test - Final
No E. coli Shiga Toxin 1 or 2 detected.
12/05/24 17:30 C. difficile GDH Antigen & Toxins - Final
Feces/Stool Negative for toxigenic C.difficile
MRI: Report Reviewed
Care Review
Plan reviewed with: Nurse and Other Provider (regarding spine end-plate biopsy by IR)
Total Time Spent with Patient (in minutes): 35
[2024-12-10] MEDS: LOVENOX 40 MG SC (17:22)
[2024-12-10] MEDS: MELATONIN 5 MG PO (20:53)
[2024-12-10] MEDS: MORPHINE SULFATE 2 MG IV (20:54)
[2024-12-10 21:09] LABS: Glucose - Point of Care 297 mg/dl (70-99)
[2024-12-10] MEDS: LANTUS 0.2 UNITS SC (21:54)
[2024-12-11] MEDS: ZOSYN 50 IV ×5 (00:04→23:05)
[2024-12-11 00:15] VITALS: BP 137/82
[2024-12-11] MEDS: VANCOCIN 275 MG IV ×2 (05:42→17:51)
[2024-12-11 06:00] VITALS: BMI 28.8
[2024-12-11 07:51] LABS: Glucose - Point of Care 162 mg/dl (70-99)
[2024-12-11 08:00] VITALS: BP 158/76
[2024-12-11] MEDS: FLOMAX 0.8 MG PO (08:34)
[2024-12-11] MEDS: FARXIGA 10 MG PO (08:35)
[2024-12-11] MEDS: VISBIOME 1 CAP PO (08:35)
[2024-12-11] MEDS: LIPITOR 40 MG PO (08:35)
[2024-12-11] MEDS: NEURONTIN 400 MG PO ×4 (08:35→20:25)
[2024-12-11] MEDS: NOVOLOG FLEXPEN 5 UNITS SC ×3 (08:38→17:52)
[2024-12-11] MEDS: NOVOLOG FLEXPEN-MODERATE RESISTANCE 1 UNITS SC (08:38)
--- NOTE | 2024-12-11 08:40 | PHA.VAN.FU ---
Vancomycin Assessment / Plan
- Assessment
Hemodialysis Schedule: MWF
WBC's are: WNL
In the past 24 hrs, patient has been: Afebrile
Concomitant Antimicrobials: piperacillin/tazobactam
- Dosing Plan
Continue: vancomycin 1250 mg Q12H
- Monitoring Plan
No level(s) ordered at this time: consider levels in next few days
- Follow Up
Pharmacy will continue to follow.
Vancomycin Follow UP
- -
Patient Age: 59
Patient Sex: Male
Vancomycin Day #: 7
Indication: Other
Requesting Provider: Jennie Anderson / Dr. Turcios
Pertinent Antimicrobial Allergies:
NKDA
Height / Weight:
Height 5 ft 10 in
Actual Weight 91.127 kg
IBW in k kg
Adjusted BW in k.4 kg
Pertinent Past Medical History: DM 2
- Vital Signs / Lab Results
Temp Pulse Resp BP Pulse Ox
98.4 F 76 18 158/76 99
12/11/24 08:00 12/11/24 08:00 12/11/24 08:00 12/11/24 08:00 12/11/24 08:00
Lab Results - Chemistry
12/09/24
05:32
BUN 7 L
Creatinine 0.7
Estimated Creat Clear 116
Microbiology Results
12/05/24 17:30 Blood Culture - Final
Blood/Venous No Growth - Final Report
12/05/24 17:30 Blood Culture - Final
Blood/Venous No Growth - Final Report
12/10/24 12:45 Gram Stain - Preliminary
Bl Bone Marrow
12/05/24 17:30 Salmonella/Shigella Culture - Final
Feces/Stool No Salmonella, Shigella, Aeromonas or Plesiomonas species
isolated.
Campylobacter Culture - Final
No Campylobacter species isolated.
Shiga Toxin Test - Final
No E. coli Shiga Toxin 1 or 2 detected.
Therapeutic Drug Monitoring
Vancomycin Peak 20.6 ug/ml (18-26) 12/08/24 22:12
Vancomycin Trough 11.8 ug/ml (5-20) 12/09/24 05:32
--- NOTE | 2024-12-11 09:11 | W.PN.HOSP.TC ---
Today's Communication/Plan
-
c/w IV antibiotics
Assessment / Plan
Assessment / Plan
Physical Exam
General: Well Developed and No Apparent Distress
HEENT: Normocephalic, Atraumatic and Moist Mucous Membranes
Respiratory: Clear to Auscultation
Cardiac: Regular Rhythm and S1/S2;
GI: Soft, Nontender, Nondistended and Normal Bowel Sounds;
Rectal: No bleeding
Musculoskeletal: No Clubbing, No Cyanosis and No Edema
Skin: Negative Rash
Neuro: Nonfocal/Grossly Intact
Psych: calm, pleasant.
Impression:
Concern for evolving sepsis/SIRS.
Acute mental status change secondary to toxic metabolic encephalopathy secondary to above.
Acute kidney injury
Normal anion gap metabolic acidosis
Hypokalemia
Hypocalcemia
Substance use disorder (urine drug screen positive for marijuana and cocaine)
Adrenaloma
Conditions prior to admission
Recent hospitalization outside hospital with rectal abscess status post I&D completed course of IV antibiotics via PICC line PICC line removed on 12/03
Diabetes type 2.
Essential hypertension.
Dyslipidemia
Status post pacemaker about 6 years ago.
BPH with LUTS
Plan:
Abd/Pelvis CT:
The appendix appears normal. No evidence for bowel obstruction or free intraperitoneal air. No gross evidence for significant bowel wall thickening or abnormal enhancement.
Significant endplate irregularity at L5-S1 with depression of the adjacent endplates. Main differential considerations of discitis versus severe changes of degenerative disc disease. There is air within the disc space, a finding which is reported to
favor changes of degenerative disc disease without infection. As warranted, further evaluation could be considered with MRI of the lumbar spine without and with contrast.
Lumbar spine CT:
There is endplate irregularities at the L5-S1 level with suggestion of mild anterior paraspinal fat stranding concerning for discitis/osteomyelitis although severe degenerative endplate changes are possible. There is no paraspinal soft tissue
collection identified. Consider dedicated MRI lumbar spine with and without contrast for further evaluation.
Multilevel degenerative changes most pronounced at L5-S1 with resultant moderate/severe canal stenosis and moderate bilateral neuroforaminal narrowing. Individual characterizations as above.
Presentation with fever, elevated white count, hypotension.
Differential diagnosis: C. difficile ruled out, L5-S1 osteomyelitis given CT scan imaging.
Hypotension improved with IV fluids.
Abdominal examination benign.
CT as above with no evidence of collection.
Stool for C. difficile negative pending rest of cultures
Blood cultures negative to date
Urinalysis unremarkable.
CT scan highly suspicious for L5-S1 discitis (not able to perform MRI given pacemaker issues)
Persistent pain which is chronic with no neurologic abnormalities otherwise.
Inflammatory markers possibly falsely normal given recent treatment with antibiotics for Rectal abscess.
With concern for possible discitis, osteomyelitis at L5-S1 (presentation with SIRS with so far no apparent source, although possibly partially treated with antibiotics addressing recent perirectal abscess) will go ahead with interventional radiology
consult for biopsy. Planned for today, with Cultures and Path
Continue broad-spectrum antibiotics: Currently on vancomycin and Zosyn pending cultures
Infectious disease and neurosurgery input appreciated.
Acute kidney injury.
Normal anion gap metabolic acidosis
Improved with IV fluid bolus.
Diabetes.
Hemoglobin A1c 8.8.
Patient reports being on insulin at home with average dose: Lantus 34 units at bedtime and NovoLog 10 units AC
Continue Farxiga.
Hold metformin.
Basal bolus protocol following serial Accu-Cheks
Reintroduce standing dose of insulin
#Left Adrenal Mass
Consider follow-up CT or MRI of the abdomen with attention to the adrenal glands in 6 months.
# hypokalemia, resolved.
# insomnia, Melatonin at nighttime.
Cardiovascular.
Essential hypertension.
Status post pacemaker
Dyslipidemia.
Denies heart failure.
Medical records from primary cardiology pending.
Volume status compensated per
Hold furosemide acutely.
Continue metoprolol monitor for recurrent hypertension
Continue statin
BPH with LUTS
Continue Flomax
Monitor for retention
Total time spent to see the patient, examine the patient, review data and lab results, discuss treatment plan with patient, nursing staff around 55 minutes
Anticipated Discharge: > 48 hours
Subjective/Interval History
-
Date of Service: December 11, 2024
No worsening back pain
No fever
No chills
Objective Data
-
Labs:
Laboratory Results
12/11/24
08:54
WBC Pending
Hgb Pending
Hct Pending
Plt Count Pending
Sodium Pending
Potassium Pending
Chloride Pending
Carbon Dioxide Pending
BUN Pending
Creatinine Pending
Glucose Pending
Calcium Pending
Total Bilirubin Pending
AST Pending
ALT Pending
Alkaline Phosphatase Pending
Vital Signs:
Vital Signs
Temp Pulse Resp BP Pulse Ox
98.4 F 76 18 158/76 99
12/11/24 08:00 12/11/24 08:00 12/11/24 08:00 12/11/24 08:00 12/11/24 08:00
I&O
12/10/24 12/11/24 12/12/24
06:59 06:59 06:59
Intake Total 2014 2785 / 2785
Balance 2014 2785 / 2785
[2024-12-11 09:48] LABS: Hematocrit 32.4 % (39.0-52.0); Hemoglobin 10.1 g/dL (13.0-18.0); Mean Corp Hgb Conc. 31.2 g/dL (33.0-37.0); Mean Corpuscular Volume 87.3 fL (80.0-94.0); Platelet Count 239 10^3/uL (130-400); Red Cell Dist. Width 16.1 % (11.5-14.5)
[2024-12-11 10:17] LABS: ALT (SGPT) 16 U/L (0-50); AST (SGOT) 21 U/L (17-59); Albumin 3.9 g/dl (3.5-5.0); Alkaline Phosphatase 61 U/L (38-126); Blood Urea Nitrogen 16 mg/dl (9-20); Calcium 9.1 mg/dl (8.4-10.2); Carbon Dioxide 24 mmol/L (22-30); Chloride 112 mmol/L (98-107); Estimated Creatinine Clearance 90 ml/min; Glucose 149 mg/dl (70-99); Potassium 4.0 mmol/L (3.5-5.1); Sodium 144 mmol/L (135-145); Total Protein 6.4 g/dl (6.3-8.2); eGFR > 60.00
[2024-12-11] MEDS: QUESTRAN 4 GRAM PO (10:44)
[2024-12-11 11:43] LABS: Glucose - Point of Care 236 mg/dl (70-99)
[2024-12-11] MEDS: MORPHINE SULFATE 2 MG IV ×2 (12:36→22:46)
[2024-12-11] MEDS: NOVOLOG FLEXPEN-MODERATE RESISTANCE 3 UNITS SC ×2 (12:41→17:51)
[2024-12-11 14:55] VITALS: BP 158/83
[2024-12-11 16:50] LABS: Glucose - Point of Care 248 mg/dl (70-99)
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
[2024-12-11] MEDS: LOVENOX 40 MG SC (17:52)
[2024-12-11] MEDS: MELATONIN 5 MG PO (20:25)
[2024-12-11 21:18] LABS: Glucose - Point of Care 261 mg/dl (70-99)
[2024-12-11] MEDS: LANTUS 0.2 UNITS SC (22:46)
[2024-12-11 23:00] VITALS: BP 164/83
[2024-12-12 04:44] VITALS: BMI 29.0
[2024-12-12] MEDS: ZOSYN 50 IV ×3 (05:45→17:50)
[2024-12-12] MEDS: VANCOCIN 275 MG IV ×2 (06:18→18:22)
[2024-12-12 07:00] VITALS: BP 166/94
[2024-12-12 07:52] LABS: Glucose - Point of Care 243 mg/dl (70-99)
[2024-12-12] MEDS: FARXIGA 10 MG PO (07:54)
[2024-12-12] MEDS: FLOMAX 0.8 MG PO (07:54)
[2024-12-12] MEDS: NEURONTIN 400 MG PO ×4 (07:54→21:39)
[2024-12-12] MEDS: VISBIOME 1 CAP PO (07:54)
[2024-12-12] MEDS: LIPITOR 40 MG PO (07:54)
--- NOTE | 2024-12-12 08:00 | PHA.VAN.FU ---
Vancomycin Assessment / Plan
- Assessment
Renal Function: Stable
Hemodialysis Schedule: MWF
WBC's are: WNL
In the past 24 hrs, patient has been: Afebrile
Concomitant Antimicrobials: piperacillin/tazobactam
- Dosing Plan
Continue: vancomycin 1250 mg Q12H
- Monitoring Plan
Peak Level: 8.10 @2130
Trough Level: 8.11@0530
- Follow Up
Pharmacy will continue to follow.
Vancomycin Follow UP
- -
Patient Age: 59
Patient Sex: Male
Vancomycin Day #: 8
Indication: Other
Requesting Provider: Jennie Anderson / Dr. Turcios
Pertinent Antimicrobial Allergies:
NKDA
Height / Weight:
Height 5 ft 10 in
Actual Weight 91.671 kg
IBW in k kg
Adjusted BW in k.4 kg
Pertinent Past Medical History: DM 2
- Vital Signs / Lab Results
Temp Pulse Resp BP Pulse Ox
98.2 F 83 19 166/94 98
12/12/24 07:00 12/12/24 07:00 12/12/24 07:00 12/12/24 07:00 12/12/24 07:00
Lab Results - Hematology
12/11/24
08:54
WBC 7.2
Lab Results - Chemistry
12/11/24
08:54
BUN 16
Creatinine 0.9
Estimated Creat Clear 90
Albumin 3.9
Microbiology Results
12/10/24 12:45 Tissue Culture - Preliminary
Bl Bone Marrow No Growth After 18-24 Hours
Gram Stain - Preliminary
12/05/24 17:30 Blood Culture - Final
Blood/Venous No Growth - Final Report
12/05/24 17:30 Blood Culture - Final
Blood/Venous No Growth - Final Report
Therapeutic Drug Monitoring
Vancomycin Peak 20.6 ug/ml (18-26) 12/08/24 22:12
Vancomycin Trough 11.8 ug/ml (5-20) 12/09/24 05:32
--- NOTE | 2024-12-12 09:02 | W.PN.HOSP.TC ---
Today's Communication/Plan
-
.
Assessment / Plan
Assessment / Plan
Physical Exam
General: Well Developed and No Apparent Distress
HEENT: Normocephalic, Atraumatic and Moist Mucous Membranes
Respiratory: Clear to Auscultation
Cardiac: Regular Rhythm and S1/S2;
GI: Soft, Nontender, Nondistended and Normal Bowel Sounds;
Rectal: No bleeding
Musculoskeletal: No Clubbing, No Cyanosis and No Edema. No back tenderness or swelling. Biopsy site: clean, non tender , no leak.
Skin: Negative Rash
Neuro: Nonfocal/Grossly Intact
Psych: calm, pleasant.
Impression:
Concern for evolving sepsis/SIRS. Seems more SIRS > sepsis.
Acute mental status change secondary to toxic metabolic encephalopathy secondary to above.
Acute kidney injury
Normal anion gap metabolic acidosis
Hypokalemia
Hypocalcemia
Substance use disorder (urine drug screen positive for marijuana and cocaine)
Adrenaloma
Conditions prior to admission
Recent hospitalization outside hospital with rectal abscess status post I&D completed course of IV antibiotics via PICC line PICC line removed on 12/03
Diabetes type 2.
Essential hypertension.
Dyslipidemia
Status post pacemaker about 6 years ago.
BPH with LUTS
Plan:
Abd/Pelvis CT:
The appendix appears normal. No evidence for bowel obstruction or free intraperitoneal air. No gross evidence for significant bowel wall thickening or abnormal enhancement.
Significant endplate irregularity at L5-S1 with depression of the adjacent endplates. Main differential considerations of discitis versus severe changes of degenerative disc disease. There is air within the disc space, a finding which is reported to
favor changes of degenerative disc disease without infection. As warranted, further evaluation could be considered with MRI of the lumbar spine without and with contrast.
Lumbar spine CT:
There is endplate irregularities at the L5-S1 level with suggestion of mild anterior paraspinal fat stranding concerning for discitis/osteomyelitis although severe degenerative endplate changes are possible. There is no paraspinal soft tissue
collection identified. Consider dedicated MRI lumbar spine with and without contrast for further evaluation.
Multilevel degenerative changes most pronounced at L5-S1 with resultant moderate/severe canal stenosis and moderate bilateral neuroforaminal narrowing. Individual characterizations as above.
Presentation with fever, elevated white count, hypotension.
Differential diagnosis: C. difficile ruled out, L5-S1 changes, rule out osteomyelitis given CT scan imaging.
Hypotension improved with IV fluids.
Abdominal examination benign.
CT as above with no evidence of collection.
Stool for C. difficile negative pending rest of cultures
Blood cultures negative to date
Urinalysis unremarkable.
CT scan highly suspicious for L5-S1 discitis (not able to perform MRI given pacemaker issues)
Persistent pain which is chronic with no neurologic abnormalities otherwise.
Inflammatory markers possibly falsely normal given recent treatment with antibiotics for Rectal abscess.
With concern for possible discitis, rule out osteomyelitis at L5-S1 (presentation with SIRS with so far no apparent source, although possibly partially treated with antibiotics addressing recent perirectal abscess) s/p interventional radiology
consult for biopsy 12/10. NGTD Cultures/ Path is pending.
Continue broad-spectrum antibiotics: Currently on vancomycin and Zosyn
Infectious disease and neurosurgery input appreciated.
Acute kidney injury.
Normal anion gap metabolic acidosis
Resolved.
Diabetes.
Hemoglobin A1c 8.8.
Patient reports being on insulin at home with average dose: Lantus 34 units at bedtime and NovoLog 10 units AC
Continue Farxiga.
Hold metformin.
Basal bolus protocol following serial Accu-Cheks
Reintroduce standing dose of insulin
#Left Adrenal Mass
Consider follow-up CT or MRI of the abdomen with attention to the adrenal glands in 6 months.
# hypokalemia, resolved.
# insomnia, Melatonin at nighttime.
Cardiovascular.
Essential hypertension.
Status post pacemaker
Dyslipidemia.
Denies heart failure.
Medical records from primary cardiology pending.
Volume status compensated per
Hold furosemide acutely.
Continue metoprolol monitor for recurrent hypertension
Continue statin
BPH with LUTS
Continue Flomax
Monitor for retention
Total time spent to see the patient, examine the patient, review data and lab results, discuss treatment plan with patient, nursing staff around 55 minutes
Anticipated Discharge: > 48 hours
Subjective/Interval History
-
Date of Service: December 12, 2024
No worsening back pain
No fevers
Objective Data
-
Vital Signs:
Vital Signs
Temp Pulse Resp BP Pulse Ox
98.2 F 83 19 166/94 98
12/12/24 07:00 12/12/24 07:00 12/12/24 07:00 12/12/24 07:00 12/12/24 07:00
I&O
12/11/24 12/12/24 12/13/24
06:59 06:59 06:59
Intake Total 2785 / 2785 1969
Balance 2785 / 2785 1969
[2024-12-12] MEDS: NOVOLOG FLEXPEN 5 UNITS SC ×3 (09:40→17:58)
[2024-12-12] MEDS: QUESTRAN 4 GRAM PO (09:40)
[2024-12-12] MEDS: NOVOLOG FLEXPEN-MODERATE RESISTANCE 3 UNITS SC ×2 (09:40→17:59)
[2024-12-12 12:48] LABS: Glucose - Point of Care 194 mg/dl (70-99)
[2024-12-12] MEDS: NOVOLOG FLEXPEN-MODERATE RESISTANCE 1 UNITS SC (13:36)
[2024-12-12 15:00] VITALS: BP 168/85
[2024-12-12 17:14] LABS: Glucose - Point of Care 241 mg/dl (70-99)
[2024-12-12] MEDS: LOVENOX 40 MG SC (17:59)
[2024-12-12] MEDS: MORPHINE SULFATE 2 MG IV (19:03)
[2024-12-12 21:30] LABS: Glucose - Point of Care 218 mg/dl (70-99)
[2024-12-12] MEDS: MELATONIN 5 MG PO (21:39)
[2024-12-12] MEDS: LANTUS 0.2 UNITS SC (21:39)
[2024-12-12 23:00] VITALS: BP 156/86
[2024-12-13] MEDS: ZOSYN 50 IV ×3 (00:05→13:20)
[2024-12-13 06:00] VITALS: BMI 28.8
[2024-12-13 07:00] VITALS: BP 144/81
[2024-12-13] MEDS: VANCOCIN 275 MG IV (07:24)
[2024-12-13 07:28] LABS: Glucose - Point of Care 97 mg/dl (70-99)
[2024-12-13] MEDS: VISBIOME 1 CAP PO (09:02)
[2024-12-13] MEDS: FARXIGA 10 MG PO (09:02)
[2024-12-13] MEDS: NEURONTIN 400 MG PO ×2 (09:02→13:19)
[2024-12-13] MEDS: LIPITOR 40 MG PO (09:02)
[2024-12-13] MEDS: FLOMAX 0.8 MG PO (09:02)
[2024-12-13] MEDS: NOVOLOG FLEXPEN 5 UNITS SC ×2 (09:03→13:21)
[2024-12-13] MEDS: NOVOLOG FLEXPEN-MODERATE RESISTANCE SC (09:04)
[2024-12-13] MEDS: MORPHINE SULFATE 2 MG IV (09:10)
--- NOTE | 2024-12-13 09:32 | PHA.VAN.FU ---
Vancomycin Assessment / Plan
- Assessment
Renal Function: No New Labs Today
In the past 24 hrs, patient has been: Afebrile
Concomitant Antimicrobials: piperacillin/tazobactam
- Assessment - Therapeutic Drug Monitoring
Extrapolated Cmax (mcg/mL): 22.4
Peak level was drawn: Appropriately (drawn ~2.4H after end of prior infusion)
Extrapolated Cmin (mcg/mL): 12.5
Trough Drawn: Appropriately
Levels were drawn: At steady state (levels drawn after 13th maintenance dose)
Calculated AUC (mcg*h/mL): 408
Calculated ke: 0.0560
Calculated half life (H): 12.4
Calculated Vd (L): 109 (~1.2 L/kg)
Calculated Vanc CL (ml/min): 102
Half-life and Vd both increased from levels on 12/09
- Dosing Plan
Continue: Vanc 1250mg Q12H
- Monitoring Plan
No level(s) ordered at this time: would continue to follow every few days
AUC on lower end of therapeutic range and half-life slightly prolonged
Hesitant to increase dosing as may still have accumulation with half-life and hesitant to reduce to Q24H interval as AUC low and minimal accumulation since levels from 12/09
- Follow Up
Pharmacy will continue to follow.
Vancomycin Follow UP
- -
Patient Age: 59
Patient Sex: Male
Vancomycin Day #: 9
Indication: Other
Requesting Provider: Jennie Anderson / Dr. Turcios
Pertinent Antimicrobial Allergies:
NKDA
Height / Weight:
Height 5 ft 10 in
Actual Weight 90.917 kg
Pertinent Past Medical History: DM 2
- Vital Signs / Lab Results
Temp Pulse Resp BP Pulse Ox
97.7 F 82 19 144/81 99
12/13/24 07:00 12/13/24 07:00 12/13/24 07:00 12/13/24 07:00 12/13/24 07:00
Lab Results - Hematology
12/11/24
08:54
WBC 7.2
Lab Results - Chemistry
12/11/24
08:54
BUN 16
Creatinine 0.9
Estimated Creat Clear 90
Albumin 3.9
Microbiology Results
12/10/24 12:45 Tissue Culture - Preliminary
Bl Bone Marrow No Growth After 48 Hours
Gram Stain - Preliminary
Therapeutic Drug Monitoring
Vancomycin Peak 19.6 ug/ml (18-26) 12/12/24 22:16
Vancomycin Trough 12.7 ug/ml (5-20) 12/13/24 06:01
[2024-12-13] MEDS: QUESTRAN 4 GRAM PO (10:30)
[2024-12-13 11:56] LABS: Glucose - Point of Care 235 mg/dl (70-99)
--- NOTE | 2024-12-13 13:19 | W.PN.HOSP.TC ---
Addendum entered and electronically signed by Luke Blanchard MD 12/13/24 16:03:
[id number]
Addendum entered and electronically signed by Luke Blanchard MD 12/13/24 16:01:
12/10 s/p L5 biopsy. Cx neg to date. Path negative for definitive osteomyelitis.
Patient would like to pursue conservative management, off of antibiotics
LSO brace
DC abx
F/u PCP, NSG outpatient; follow up ID in a few weeks as well (for 6 weeks)
Rxed few days of tramadol
More than 30 minutes spent in discharge including
Final examination of the patient
Summarizing hospital stay
Instructions for continuing care to all relevant caregivers
Preparation of discharge records, prescriptions, and referral forms
Total time spent (in minutes): 36
Addendum entered and electronically signed by Luke Blanchard MD 12/13/24 13:26:
F/u Path
Original Note:
Today's Communication/Plan
-
Abx - await official ID recs for continuation
Transition to PO pain regimen to facilitate disposition
Assessment / Plan
Assessment / Plan
Physical Exam
General: Well Developed and No Apparent Distress
HEENT: Normocephalic, Atraumatic and Moist Mucous Membranes
Respiratory: Clear to Auscultation
Cardiac: Regular Rhythm and S1/S2;
GI: Soft, Nontender, Nondistended and Normal Bowel Sounds;
Rectal: No bleeding
Musculoskeletal: No Clubbing, No Cyanosis and No Edema. No back tenderness or swelling. Biopsy site: clean, non tender , no leak.
Skin: Negative Rash
Neuro: Nonfocal/Grossly Intact
Psych: calm, pleasant.
Impression:
Concern for evolving sepsis/SIRS. Seems more SIRS > sepsis.
Acute mental status change secondary to toxic metabolic encephalopathy secondary to above.
Acute kidney injury
Normal anion gap metabolic acidosis
Hypokalemia
Hypocalcemia
Substance use disorder (urine drug screen positive for marijuana and cocaine)
Adrenaloma
Conditions prior to admission
Recent hospitalization outside hospital with rectal abscess status post I&D completed course of IV antibiotics via PICC line PICC line removed on 12/03
Diabetes type 2.
Essential hypertension.
Dyslipidemia
Status post pacemaker about 6 years ago.
BPH with LUTS
Plan:
Abd/Pelvis CT:
The appendix appears normal. No evidence for bowel obstruction or free intraperitoneal air. No gross evidence for significant bowel wall thickening or abnormal enhancement.
Significant endplate irregularity at L5-S1 with depression of the adjacent endplates. Main differential considerations of discitis versus severe changes of degenerative disc disease. There is air within the disc space, a finding which is reported to
favor changes of degenerative disc disease without infection. As warranted, further evaluation could be considered with MRI of the lumbar spine without and with contrast.
Lumbar spine CT:
There is endplate irregularities at the L5-S1 level with suggestion of mild anterior paraspinal fat stranding concerning for discitis/osteomyelitis although severe degenerative endplate changes are possible. There is no paraspinal soft tissue
collection identified. Consider dedicated MRI lumbar spine with and without contrast for further evaluation.
Multilevel degenerative changes most pronounced at L5-S1 with resultant moderate/severe canal stenosis and moderate bilateral neuroforaminal narrowing. Individual characterizations as above.
#Presentation with fever, elevated white count, hypotension.
Differential diagnosis: C. difficile ruled out, L5-S1 changes, rule out osteomyelitis given CT scan imaging.
Hypotension improved with IV fluids.
Abdominal examination benign.
CT as above with no evidence of collection.
Stool for C. difficile negative pending rest of cultures
Blood cultures negative to date
Urinalysis unremarkable.
CT scan highly suspicious for L5-S1 discitis (not able to perform MRI given pacemaker issues)
Persistent pain which is chronic with no neurologic abnormalities otherwise.
Inflammatory markers possibly falsely normal given recent treatment with antibiotics for Rectal abscess.
With concern for possible discitis, rule out osteomyelitis at L5-S1 (presentation with SIRS with so far no apparent source, although possibly partially treated with antibiotics addressing recent perirectal abscess) s/p interventional radiology
consult for biopsy 12/10. NGTD Cultures/ Path is pending.
Continue broad-spectrum antibiotics: Currently on vancomycin and Zosyn
Infectious disease and neurosurgery input appreciated.
Transition to PO pain regimen
Acute kidney injury.
Normal anion gap metabolic acidosis
Resolved.
Diabetes.
Hemoglobin A1c 8.8.
Patient reports being on insulin at home with average dose: Lantus 34 units at bedtime and NovoLog 10 units AC
Continue Farxiga.
Hold metformin.
Basal bolus protocol following serial Accu-Cheks
Reintroduce standing dose of insulin
#Left Adrenal Mass
Consider follow-up CT or MRI of the abdomen with attention to the adrenal glands in 6 months.
# hypokalemia, resolved.
# insomnia, Melatonin at nighttime.
Cardiovascular.
Essential hypertension.
Status post pacemaker
Dyslipidemia.
Denies heart failure.
Medical records from primary cardiology pending.
Volume status compensated per
Hold furosemide acutely.
Continue metoprolol monitor for recurrent hypertension
Continue statin
BPH with LUTS
Continue Flomax
Monitor for retention
Anticipated Discharge: 24 - 48 hours
Subjective/Interval History
-
Date of Service: December 13, 2024
Objective Data
-
Vital Signs:
Vital Signs
Temp Pulse Resp BP Pulse Ox
97.7 F 82 19 144/81 99
12/13/24 07:00 12/13/24 07:00 12/13/24 07:00 12/13/24 07:00 12/13/24 08:45
I&O
12/12/24 12/13/24 12/14/24
06:59 06:59 06:59
Intake Total 1969
Balance 1969
[2024-12-13] MEDS: NOVOLOG FLEXPEN-MODERATE RESISTANCE 3 UNITS SC (13:21)
[2024-12-13 15:00] VITALS: BP 160/89
--- NOTE | 2024-12-13 15:12 | CM ---
Addendum entered by Susi Vázquez 12/13/24 16:16:
Patient discharge today
IMM explained & signed. In chart
PLAN: Home, no needs
to transport
Original Note:
Patient seen at bedside
Cont on IV antibiotics
PLAN: TBD, when medically stable, CM to continue to follow for ?IV needs
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
--- NOTE | 2024-12-13 16:01 | W.DS.TRANS ---
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
-
Discharge Instructions:
Discharge Diagnosis/Procedures back pain
Diet As tolerated,Diabetic, Carb Controlled,Low
Cholesterol,Low Fat,Restrict fluids to 48 oz
Activity As tolerated
Blood Work cbc and cmp in 5-7 days with PCP
Others Tests #Left Adrenal Mass
Consider follow-up CT or MRI of the abdomen with
attention to the adrenal glands in 6 months.
Instructions:
Stand-Alone Forms:
Changes to Home Medications: Yes
Discharge Medications:
DC Medications w/original date entered in [employer]
atorvastatin 40 mg tablet 40 mg PO DAILY cholesterol 12/05/24
azelastine 137 mcg (0.1 %) nasal spray 2 spray intranasal BID Allergies 12/05/24
dapagliflozin propanediol 10 mg tablet (Farxiga) 10 mg PO DAILY Diabetes 12/05/24
dutasteride 0.5 mg-tamsulosin ER 0.4 mg capsule ext.release 24hr mphas 2 cap PO DAILY Urinary Issue 12/05/24
furosemide 40 mg tablet 40 mg PO DAILY Fluid Retention/Swelling 12/05/24
gabapentin 400 mg capsule 400 mg PO QID Pain 12/05/24
losartan 100 mg tablet 100 mg PO DAILY Blood Pressure 12/05/24
metformin 1,000 mg tablet 1,000 mg PO BID Diabetes 12/05/24
metoprolol tartrate 25 mg tablet 25 mg PO BID Blood Pressure 12/05/24
insulin aspart U-100 100 unit/mL (3 mL) subcutaneous pen (Novolog FlexPen U-100 Insulin aspart) 0 unit SC .SLIDING SCALE Diabetes 12/09/24
insulin glargine 100 unit/mL (3 mL) subcutaneous pen 25 unit (0.25 mL) SC HS Diabetes #0 mL 12/13/24
tramadol 50 mg tablet 50 mg PO Q6HPRN PRN mild to moderate pain #12 tabs 12/13/24
Home Medication Changes
insulin glargine 100 unit/mL (3 mL) subcutaneous pen 25 unit (0.25 mL) SC HS Diabetes #0 mL 12/13/24
tramadol 50 mg tablet 50 mg PO Q6HPRN PRN mild to moderate pain #12 tabs 12/13/24
Pending Results: No
--- NOTE | 2024-12-13 16:09 | PTCARENOTE ---
Pt refusing lab draw prior to d/c. States he is eager to get out of here. made aware. D/c order placed. Instruction given for pt to follow up outpatient.
== END 2024-12-13 16:26 | disposition home or self-care (01) | DRG 853 ==
LOC: 3 WEST ACU 20:06
PROVIDERS: Internal Medicine; Physician Assistant Medical; Radiology Diagnostic Radiology; Radiology Vascular & Interventional Radiology; ADMITTING PHYSICIAN Internal Medicine; ATTENDING PHYSICIAN Internal Medicine; CONSULT PHYSICIAN Neurological Surgery; EMERGENCY PHYSICIAN Emergency Medicine; FAMILY PHYSICIAN Family Medicine; OTHER PHYSICIAN Hospitalist
PROC: BR191ZZ Fluoroscopy of Lumbar Spine using Low Osmolar Contrast (ICD-10-PCS; 2024-12-10)
PROC: 0QB03ZX Excision of Lumbar Vertebra, Percutaneous Approach, Diagnostic (ICD-10-PCS; 2024-12-10)
DX: A41.9 Sepsis, unspecified organism (principal); G92.8 Other toxic encephalopathy; E87.6 Hypokalemia; E83.51 Hypocalcemia; E11.9 Type 2 diabetes mellitus without complications; I10 Essential (primary) hypertension; N40.1 Benign prostatic hyperplasia with lower urinary tract symptoms; Z95.810 Presence of automatic (implantable) cardiac defibrillator; Z79.899 Other long term (current) drug therapy; Z79.84 Long term (current) use of oral hypoglycemic drugs; F17.210 Nicotine dependence, cigarettes, uncomplicated; W18.11XA Fall from or off toilet without subsequent striking against object, initial encounter; E27.9 Disorder of adrenal gland, unspecified; E78.00 Pure hypercholesterolemia, unspecified; G89.29 Other chronic pain; R65.20 Severe sepsis without septic shock
CPT/HCPCS: 20225; 70450; 71045; 72132; 74177; 77002; 80048; 80053; 80202; 80306; 80307; 81003; 81015; 82040; 82077; 82550; 82565; 82962; 83036; 83605; 83615; 83690; 83735; 84075; 84520; 85025; 85027; 85610; 85652; 86140; 87040; 87045; 87046; 87070; 87077; 87176; 87205; 87324; 87427; 87449; 88307; 88311; 93005; 96365; 96366; 96367; 96375; 97162; 97166; 99291; Q9967